=== PATIENT | female | born 1970 | race American Indian/Alaskan Native ===

== ENCOUNTER 2017-03-01 02:17 | Emergency (ER) | payer MEDICARE, OTHER ==
[2017-03-01] MEDS ORDERED: DILAUDID IV ONE (02:57)
[2017-03-01] MEDS ORDERED: SUBLIMAZE IV ONE ×2 (06:49→07:00)
--- NOTE | 2017-03-01 06:51 | Emergency Department Report ---
ED Lower Extremity HPI - General Chief Complaint: Extremity Injury, Lower Stated Complaint: R ANKLE PAIN Time Seen by Provider: 03/01/17 06:40 Source: patient, EMS (ems notes not available at time of chart dictation), RN notes reviewed, old records reviewed Mode of arrival: Stretcher Limitations: Physical Limitation - History of Present Illness Initial Comments: This is a 46-year-old female. She is previously unknown to me. She presents to the ER with right ankle pain after her legs gave way. She did not fall and hit her head. She did not hit her neck. She has no extremity weakness or numbness. The pain is sharp. It increases with palpation and range of motion. It decreases with rest. MD Complaint: ankle injury -: Sudden, days(s) Injury: Ankle: Right Type of Injury: inversion, eversion Place: home Severity: moderate Improves With: rest Worsens With: movement, palpation Context: walking Associated Symptoms: swelling - Related Data Home Medications Medication Instructions Recorded Confirmed Last Taken Duloxetine HCl [DULoxetine] 60 mg PO DAILY 12/14/14 10/02/15 10/02/15 Loratadine [Claritin] 10 mg PO DAILY 12/14/14 10/02/15 10/02/15 Tizanidine HCl [Zanaflex] 4 mg PO TID PRN 12/14/14 10/02/15 10/02/15 Butalb/Acetamin/Caff 50-325-40 1 tab PO Q8H PRN 03/22/15 10/02/15 10/01/15 [Fioricet] Spironolactone [Aldactone] 25 mg PO DAILY 03/22/15 10/02/15 10/02/15 Ondansetron [Zofran TAB] 4 mg PO Q6HR PRN 04/15/15 10/02/15 2 Weeks Ago Multivits,Ca,Minerals/Iron/FA 1 each PO QDAY 05/05/15 10/02/15 10/02/15 [Thera M Plus Tablet] Quetiapine Fumarate [QUEtiapine 425 mg PO QHS 05/05/15 10/02/15 10/01/15 Fumarate] Multivit with Calcium,Iron,Min 1 each PO DAILY 10/02/15 10/02/15 10/01/15 [Multiple Vitamins For Women] Topiramate [Topamax] 300 mg PO DAILY 10/02/15 10/02/15 10/02/15 Previous Rx's Medication Instructions Recorded Last Taken Type Morphine Sulfate [Morphine Sulfate 30 mg PO Q12H #20 tablet.er 12/23/14 Rx ER] Metoprolol [Lopressor TAB] 50 mg PO BID #60 tablet 03/25/15 10/02/15 Rx levETIRAcetam [Keppra TAB] 500 mg PO BID #60 tablet 04/25/15 10/02/15 Rx Erythromycin [Erythromycin Ophth 1 applicatio OU Q6HR #1 tube 08/06/16 Unknown Rx Oint] Naproxen [Naprosyn] 500 mg PO BID #60 tablet 01/14/17 Unknown Rx methOCARBAMOL [Robaxin TAB] 500 mg PO BID #60 tab 01/14/17 Unknown Rx Ketorolac [Toradol] 10 mg PO Q6H PRN #20 tablet 03/01/17 Unknown Rx oxyCODONE [Roxicodone] 5 mg PO Q6HR PRN #15 tablet 03/01/17 Unknown Rx Allergies Allergy/AdvReac Type Severity Reaction Status Date / Time No Known Allergies Allergy Verified 12/14/14 06:02 ED Review of Systems ROS: Stated complaint: R ANKLE PAIN Other details as noted in HPI Constitutional: denies: fever Eyes: denies: vision change ENT: denies: epistaxis Respiratory: denies: cough Cardiovascular: denies: chest pain Gastrointestinal: denies: abdominal pain Genitourinary: denies: dysuria Musculoskeletal: arthralgia, myalgia Skin: denies: lesions Neurological: denies: weakness Psychiatric: anxiety ED Past Medical Hx - Past Medical History Hx Hypertension: Yes Hx Heart Attack/AMI: (see anes. note.) Hx Congestive Heart Failure: No Hx Diabetes: No Hx Arthritis: Yes Hx Seizures: Yes Hx Psychiatric Treatment: Yes (bipolar disorder) Hx Asthma: No Hx COPD: No Additional medical history: Chronic pain - Surgical History Hx Cholecystectomy: Yes Additional Surgical History: Tubal ligation, gastric bypass, left shoulder surgery - Social History Smoking Status: Never Smoker Substance Use Type: None - Medications Home Medications: Home Medications Medication Instructions Recorded Confirmed Last Taken Type Duloxetine HCl [DULoxetine] 60 mg PO DAILY 12/14/14 10/02/15 10/02/15 History Loratadine [Claritin] 10 mg PO DAILY 12/14/14 10/02/15 10/02/15 History Tizanidine HCl [Zanaflex] 4 mg PO TID PRN 12/14/14 10/02/15 10/02/15 History Morphine Sulfate [Morphine Sulfate 30 mg PO Q12H #20 tablet.er 12/23/1410/01/15 Rx ER] Butalb/Acetamin/Caff 50-325-40 1 tab PO Q8H PRN 03/22/15 10/02/15 10/01/15 History [Fioricet] Spironolactone [Aldactone] 25 mg PO DAILY 03/22/15 10/02/15 10/02/15 History Metoprolol [Lopressor TAB] 50 mg PO BID #60 tablet 03/25/15 10/02/15 10/02/15 Rx Ondansetron [Zofran TAB] 4 mg PO Q6HR PRN 04/15/15 10/02/15 2 Weeks Ago History levETIRAcetam [Keppra TAB] 500 mg PO BID #60 tablet 04/25/15 10/02/15 10/02/15 Rx Multivits,Ca,Minerals/Iron/FA 1 each PO QDAY 05/05/15 10/02/15 10/02/15 History [Thera M Plus Tablet] Quetiapine Fumarate [QUEtiapine 425 mg PO QHS 05/05/15 10/02/15 10/01/15 History Fumarate] Multivit with Calcium,Iron,Min 1 each PO DAILY 10/02/15 10/02/15 10/01/15 History [Multiple Vitamins For Women] Topiramate [Topamax] 300 mg PO DAILY 10/02/15 10/02/15 10/02/15 History Erythromycin [Erythromycin Ophth 1 applicatio OU Q6HR #1 tube 08/06/16 Unknown Rx Oint] Naproxen [Naprosyn] 500 mg PO BID #60 tablet 01/14/17 Unknown Rx methOCARBAMOL [Robaxin TAB] 500 mg PO BID #60 tab 01/14/17 Unknown Rx Ketorolac [Toradol] 10 mg PO Q6H PRN #20 tablet 03/01/17 Unknown Rx oxyCODONE [Roxicodone] 5 mg PO Q6HR PRN #15 tablet 03/01/17 Unknown Rx ED Physical Exam - General Limitations: Physical Limitation General appearance: alert, in no apparent distress - Head Head exam: Present: atraumatic, normocephalic - Eye Eye exam: Present: normal appearance, EOMI. Absent: nystagmus - ENT ENT exam: Present: normal exam, normal orophraynx, mucous membranes moist, normal external ear exam - Neck Neck exam: Present: normal inspection, full ROM. Absent: tenderness, meningismus - Respiratory Respiratory exam: Present: normal lung sounds bilaterally. Absent: respiratory distress, wheezes, rales, rhonchi, stridor, decreased breath sounds - Cardiovascular Cardiovascular Exam: Present: regular rate, normal rhythm, normal heart sounds. Absent: bradycardia, tachycardia, irregular rhythm, systolic murmur, diastolic murmur, rubs, gallop - GI/Abdominal GI/Abdominal exam: Present: soft, normal bowel sounds. Absent: distended, tenderness, guarding, rebound, rigid, pulsatile mass - Extremities Exam Extremities exam: Present: full ROM, tenderness, normal capillary refill, other (2+ pulses are noted in 4 extremities. The right ankle is tender in the medial and lateral malleolus. Compartments are soft. Sensations intact to light touch. There is no significant pain with passive range of motion of the great toe.). Absent: pedal edema, joint swelling, calf tenderness - Back Exam Back exam: Present: normal inspection, full ROM. Absent: tenderness, CVA tenderness (R), CVA tenderness (L), muscle spasm, paraspinal tenderness, vertebral tenderness - Neurological Exam Neurological exam: Present: alert, oriented X3, other (Extraocular movements intact. Tongue midline. No facial droop. Facial sensation intact to light touch in the V1, V2, V3 distribution bilaterally. 5 and 5 strength in 4 extremities.. Sensation is intact to light touch in 4 extremities.). Absent: motor sensory deficit - Psychiatric Psychiatric exam: Present: normal affect, normal mood - Skin Skin exam: Present: warm, dry, intact, normal color. Absent: rash ED Course Vital Signs 03/01/17 03/01/17 03/01/17 02:31 03:04 07:06 Temperature 98.3 F Pulse Rate 62 71 Respiratory 16 18 18 Rate Blood Pressure 118/76 Blood Pressure 132/82 [Right] O2 Sat by Pulse 96 100 Oximetry - Reevaluation(s) Reevaluation #1: 03/01/17 08:15 Differential diagnosis: Right lower extremity ankle fracture, [place] fracture Assessment and plan: This is a 46-year-old female who has a complex fracture of the distal fibula with slight posterior angulation. Medial malleolus fracture is noted. No new fractures noted. She has a GCS of 15, with an NIH score of 0. Her compartments are soft. There is no indication of compartment syndrome or neurovascular compromise at this time. Patient will be made nonweightbearing , she is given crutches, she will be placed in a posterior/X Josemanuel, and is instructed to follow-up with outpatient orthopedics within the next 5-7 days. Return precautions are extensively reviewed. ED Lower Extremity MDM - Lab Data Vital Signs 03/01/17 03/01/17 03/01/17 02:31 03:04 07:06 Temperature 98.3 F Pulse Rate 62 71 Respiratory 16 18 18 Rate Blood Pressure 118/76 Blood Pressure 132/82 [Right] O2 Sat by Pulse 96 100 Oximetry - Radiology Data Radiology results: report reviewed, image reviewed X-ray of the ankle demonstrates a medial malleolus fracture on the right, and a complex fracture of the distal fibula with slight posterior angulation. The talus and calcaneus are intact. The ankle mortise is intact. There is soft tissue swelling. The right knee x-ray is negative for acute disease. Critical care attestation.: If time is entered above; I have spent that time in minutes in the direct care of this critically ill patient, excluding procedure time. ED Disposition Clinical Impression: Ankle fracture Disposition: DISCHARGED TO HOME OR SELFCARE Is pt being admited?: No Does the pt Need Aspirin: No Condition: Stable Instructions: Ankle Fracture (ED) Additional Instructions: X-ray of the ankle demonstrated a right-sided medial malleolus fracture, and a complex fracture of the distal fibula. Remain nonweightbearing. Use the crutches as directed. Follow-up with an orthopedic surgeon within the next 5-7 days. If taking oxycodone for pain, do not drive, consume alcohol, operate motor vehicles, make important decisions. Return to the ER right away with new pain, worsening pain, migration of pain, fevers or chills, intractable nausea or vomiting, inability to tolerate liquid feeds, extremity numbness. If taking the oxycodone for pain, do not combine with other sedating medications. Prescriptions: Ketorolac [Toradol] 10 mg PO Q6H PRN #20 tablet PRN Reason: Pain oxyCODONE [Roxicodone] 5 mg PO Q6HR PRN #15 tablet PRN Reason: Pain Referrals: PRIMARY CARE, [Primary Care Provider] - 3-5 Days BRIAN GHOSH MD [Staff Physician] - 3-5 Days MURRAY GORDON MD [Staff Physician] - 3-5 Days
--- NOTE | 2017-03-01 06:57 | XRay Report ---
FINAL REPORT PROCEDURE: XR ANKLE 3 RT TECHNIQUE: Right ankle radiographs, AP, lateral, and oblique views. CPT 48292 HISTORY: injury, pain OF RT ANKLE COMPARISON: No prior studies are available for comparison. FINDINGS: There is a complex fracture of the distal fibula with slight posterior angulation. There is a fracture of the medial malleolus. Talus and calcaneus are intact. Ankle mortise is intact. There is generalized soft tissue swelling. IMPRESSION: Fractures of the distal tibia and fibula as described..
[2017-03-01 07:07] VITALS: BP 132/82
--- NOTE | 2017-03-01 07:52 | XRay Report ---
RIGHT KNEE: Pain after fall. AP and lateral projections. The bony architecture is intact without evidence of fracture or dislocation. No significant soft tissue abnormality is seen. IMPRESSION: Normal right knee.
== END 2017-03-01 08:58 | disposition home or self-care (01) ==
LOC: ED 02:17
DX: S82.831A Other fracture of upper and lower end of right fibula, initial encounter for closed fracture (principal); M19.90 Unspecified osteoarthritis, unspecified site; I10 Essential (primary) hypertension; F31.9 Bipolar disorder, unspecified; G89.29 Other chronic pain; X58.XXXA Exposure to other specified factors, initial encounter; Y93.89 Activity, other specified; Y99.9 Unspecified external cause status; Y92.89 Other specified places as the place of occurrence of the external cause
CPT/HCPCS: 29515; 73560; 73610; 96374; 96375; 99284; J1170; J3010

== ENCOUNTER 2017-03-08 08:48 | Day surgery (SDC) | payer MEDICARE ==
--- NOTE | 2017-03-07 21:30 | History and Physical Report ---
History of Present Illness Date of examination: 03/03/17 Date of admission: 03/08/17 Chief complaint: History of fall, right ankle injury and was seen in emergency room. Diagnosed with displaced by mild the fracture, being admitted for open reduction internal fixation. Past History Past Medical History: hypertension Medications and Allergies Allergies Allergy/AdvReac Type Severity Reaction Status Date / Time No Known Allergies Allergy Verified 12/14/14 06:02 Home Medications Medication Instructions Recorded Confirmed Last Taken Type Duloxetine HCl [DULoxetine] 60 mg PO DAILY 12/14/14 03/07/17 10/02/15 History Tizanidine HCl [Zanaflex] 4 mg PO TID PRN 12/14/14 03/07/17 10/02/15 History Spironolactone [Aldactone] 25 mg PO DAILY 03/22/15 03/07/17 10/02/15 History Metoprolol [Lopressor TAB] 50 mg PO BID #60 tablet 03/25/15 03/07/17 10/02/15 Rx Ondansetron [Zofran TAB] 4 mg PO Q6HR PRN 04/15/15 03/07/17 2 Weeks Ago History Multivits,Ca,Minerals/Iron/FA 1 each PO QDAY 05/05/15 03/07/17 10/02/15 History [Thera M Plus Tablet] Quetiapine Fumarate [QUEtiapine 425 mg PO QHS 05/05/15 03/07/17 10/01/15 History Fumarate] Multivit with Calcium,Iron,Min 1 each PO DAILY 10/02/15 03/07/17 10/01/15 History [Multiple Vitamins For Women] Topiramate [Topamax] 300 mg PO DAILY 10/02/15 03/07/17 10/02/15 History Erythromycin [Erythromycin Ophth 1 applicatio OU Q6HR #1 tube 08/06/16 03/07/17 Unknown Rx Oint] methOCARBAMOL [Robaxin TAB] 500 mg PO BID #60 tab 01/14/17 03/07/17 02/14/17 Rx oxyCODONE [Roxicodone] 5 mg PO Q6HR PRN #15 tablet 03/01/17 03/07/17 03/05/17 Rx Omeprazole Magnesium [PriLOSEC Otc] 20 mg PO QDAY 03/07/17 03/07/17 Unknown History Oxycodone HCl/Acetaminophen 1 each PO Q6HR PRN 03/07/17 03/07/17 Unknown History [Percocet 10/325 mg] Sucralfate [Carafate] 1 gm PO ACHS 03/07/17 03/07/17 Unknown History Review of Systems All systems: negative Exam - Extremities Extremities: abnormal (Right right ankle with painful limitation of movement, swelling. Tenderness across the medial and lateral malleolus, no tenderness along the Achilles tendon, base of fifth metatarsal.) Assessment and Plan - Patient Problems (1) Ankle fracture Status: Acute Qualifiers: Encounter type: initial encounter Fracture type: closed Open fracture type: O Laterality: right Fracture healing: F Qualified Code(s): S82.891A - Other fracture of right lower leg, initial encounter for closed fracture Plan to address problem: Open reduction and internal fixation
[2017-03-08] MEDS ORDERED: ANCEF/STERILE WATER 2 GM/20 ML IV NR (09:36)
--- NOTE | 2017-03-08 10:13 | Anesthesia Consultation ---
Anesthesia Consult and Med Hx Date of service: 03/08/17 - Airway Anesthetic Teeth Evaluation: Good ROM Head & Neck: Adequate Mental/Hyoid Distance: Adequate Mallampati Class: Class II Intubation Access Assessment: Probably Good - Pulmonary Exam CTA: Yes - Cardiac Exam Cardiac Exam: RRR - Pre-Operative Health Status ASA Pre-Surgery Classification: ASA2 Proposed Anesthetic Plan: General Nerve Block: Pop - Pulmonary Hx Smoking: No Hx Asthma: No SOB: No COPD: No Hx Pneumonia: No Hx Sleep Apnea: No - Cardiovascular System Hx Hypertension: Yes Hx Heart Attack/AMI: No (DENIES) - Central Nervous System Hx Seizures: Yes (2014, LAST AND ONLY EPISODE, THEY TOOK ME OFF MEDICINE) Hx Psychiatric Problems: Yes - Gastrointestinal Hx Ulcer: Yes - Endocrine Hx End Stage Renal Disease: No - Hematic Hx Anemia: Yes - Other Systems Hx Alcohol Use: No Hx Substance Use: No (DENIES) Hx Cancer: No Hx Obesity: Yes
--- NOTE | 2017-03-08 10:13 | Anesthesia Day of Surgery ---
Anesthesia Day of Surgery - Day of Surgery Patient Examined: Yes Patient H&P Reviewed: Yes Patient is NPO: Yes Beta Blockers: Yes
[2017-03-08] MEDS ORDERED: SUBLIMAZE IV ONE (10:30)
[2017-03-08] MEDS ORDERED: MARCAINE-EPI 0.25%-1:200,000 INFILTRATI ONE (10:35)
[2017-03-08] MEDS ORDERED: DECADRON ONE ×2 (10:35→12:33)
[2017-03-08] MEDS ORDERED: VERSED IV NR (11:00)
[2017-03-08] MEDS ORDERED: PEPCID PO NR (11:00)
[2017-03-08] MEDS ORDERED: NACL 0.9% 1000 ML 1,000 ML IV SCH (11:00)
[2017-03-08] MEDS ORDERED: NEOSPORIN GU IR ONE ×2 (12:25→13:16)
[2017-03-08] MEDS ORDERED: XYLOCAINE MPF 2% ONE (12:33)
[2017-03-08] MEDS ORDERED: ZOFRAN ONE (12:33)
[2017-03-08] MEDS ORDERED: DIPRIVAN 10 MG/ML IV ONE (12:33)
[2017-03-08] MEDS ORDERED: SUBLIMAZE ONE (12:54)
[2017-03-08] MEDS ORDERED: NACL 0.9% IR ONE (13:16)
--- NOTE | 2017-03-08 13:43 | Discharge Summary ---
Providers - Providers Date of discharge: 03/08/17 Attending physician: BRIAN GHOSH Primary care physician: [employer] UNDERWRITER Hospitalization Reason for admission: Bi malleolar Fx right ankle Condition: Stable Procedures: ORIF bi mall Fx ankle /right (synthes) Disposition: DISCHARGED TO HOME OR SELFCARE - Discharge Diagnoses (1) Ankle fracture Status: Acute Qualifiers: Encounter type: initial encounter Fracture type: closed Open fracture type: O Laterality: right Fracture healing: F Qualified Code(s): S82.891A - Other fracture of right lower leg, initial encounter for closed fracture Core Measure Documentation - Palliative Care Palliative Care/ Comfort Measures: Not Applicable - Core Measures Any of the following diagnoses?: none Exam - Constitutional Vitals: Temp Pulse Resp BP Pulse Ox 99.5 F 80 15 134/80 100 03/08/17 09:41 03/08/17 12:31 03/08/17 12:31 03/08/17 12:31 03/08/17 12:31 Plan Activity: advance as tolerated, no driving until cleared by PCP, fall precautions Weight Bearing Status: Non-Weight Bearing Diet: regular Wound: per your surgeon's advice Durable Medical Equipment Needed Upon Discharge: Crutches Follow up with: RADHA HARKINS MD [Primary Care Provider] - 7 Days BRIAN GHOSH MD [Staff Physician] - 7 Days
[2017-03-08] MEDS ORDERED: DILAUDID ONE (14:41)
[2017-03-08] MEDS ORDERED: NORCO 5/325 PO PRN (14:46)
[2017-03-08] MEDS ORDERED: ZOFRAN IV PRN (14:46)
[2017-03-08] MEDS: DILAUDID IV PRN ×2 (14:47→15:00)
--- NOTE | 2017-03-08 15:10 | Operative Report ---
PREOPERATIVE DIAGNOSIS: Unstable bimalleolar fracture, right ankle. POSTOPERATIVE DIAGNOSIS: Unstable bimalleolar fracture, right ankle. OPERATIVE PROCEDURE: Open reduction and internal fixation, bimalleolar fracture with Synthes plate -- screw system. SURGEON: Raya Tinajero MD CANT GANG SAWYER: Gabi Love CSA. ANESTHESIA: General. BLOOD LOSS: Minimal. DESCRIPTION OF PROCEDURE: The patient was taken to surgery suite, satisfactory analgesia obtained with general anesthetics. The right lower limb prepped with ChloraPrep, satisfactorily draped. The correct patient, procedure, and surgical sites were confirmed. Tourniquet was inflated to 300 mmHg pressure. Anterior medial incision was made over the medial malleolus, deepened to the thickness of skin and subcutaneous, deep fascia incised. Periosteum elevated and the fracture was reduced under direct vision. Using the 2.4 mm drillbit a drill hole was made from the tip of the lateral malleolus into the metaphysis aspect of the distal tibia. A 4.0 cancellous screw length, 40 mm length with a washer was applied. A second screw was applied in a similar fashion as to provide rotatory stability. Under fluoroscopy, screw positioning was evaluated and no penetration into the ankle mortise was identified. A second incision was then made over the posterolateral aspect of the ankle, centering over the fracture site deepened through subcutaneous. Periosteum incised and the fracture site was visualized. For length of approximately 1-1.5 cm, there was significant comminution of the fracture starting at a point at the level of the syndesmosis and extending proximal. A 7-hole 1/3 tubular plate was then applied to the posterolateral aspect of the fibula, position was confirmed under fluoroscopy and proximally drill hole was made and with the 2.4 mm drillbit and 4.0 cancellous screw was applied. Proximal plate destabilized under fluoroscopy control through the distal fragment, 2 cancellous screws were applied in a similar fashion, care again taken to avoid penetration into the ankle mortise. Through the comminuted segment satisfactory screw fixation could not be obtained and the screw holes were then left empty. Two additional screws were then applied in a similar fashion into the proximal fragment, thereby stabilizing the plate. Final AP and lateral fluoroscopy showing satisfactory reduction and stabilization of the bimalleolar fracture and ankle mortise and latter-day of length of fibula. The syndesmosis appeared intact. Wound was then closed in layers in the standard fashion using 2-0 Vicryl and saurabh. Sterile dressings were applied. The ankle was immobilized in a posterior splint in neutral position. The patient was transferred to recovery room. She is to be discharged when discharge criteria are met. HOMEGOING INSTRUCTIONS: Elevation, localized packs, no weightbearing ambulation, aspirin for DVT prophylaxis and pain management. Follow up at the office in 7-10 days. JOB# [id number] RVN/NTS
[2017-03-08] MEDS ORDERED: PERCOCET 5/325 PO PRN (15:22)
--- NOTE | 2017-03-08 16:03 | XRay Report ---
Right ankle 3 views. History: Fracture. Findings: Orthopedic screws are seen traversing the fracture of the medial malleolus. An orthopedic sideplate and multiple screws are seen transfixing the distal fibular fracture. There are no radiographically signs of complications.
[2017-03-08 18:15] VITALS: BP 135/78
== END 2017-03-08 17:10 | disposition home or self-care (01) ==
LOC: OR 08:48
PROVIDERS: ATTEND Orthopaedic Surgery
DX: S82.841A Displaced bimalleolar fracture of right lower leg, initial encounter for closed fracture (principal); F32.9 Major depressive disorder, single episode, unspecified; E78.00 Pure hypercholesterolemia, unspecified; G40.909 Epilepsy, unspecified, not intractable, without status epilepticus; I10 Essential (primary) hypertension; D64.9 Anemia, unspecified; E66.9 Obesity, unspecified; Z68.32 Body mass index [BMI] 32.0-32.9, adult; Z98.84 Bariatric surgery status; Z81.8 Family history of other mental and behavioral disorders; Z82.49 Family history of ischemic heart disease and other diseases of the circulatory system; Z83.3 Family history of diabetes mellitus; X58.XXXA Exposure to other specified factors, initial encounter
CPT/HCPCS: 27814; 64450; 73610; C1713; J0690; J1100; J1170; J2250; J2405; J2704; J3010; J7030

== ENCOUNTER 2017-03-27 09:22 | Outpatient (CLI) | payer MEDICARE ==
--- NOTE | 2017-03-27 11:03 | Mammography Report ---
BONE DENSITY STUDY: DEFINITIONS: BMD = Bone Mineral Density T-score = BMD related to mean peak bone mass of young adult (mean expressed in Standard Deviation) Z-score = Age matched BMD expressed in SD World Health Organization (WHO) Diagnostic Criteria Normal T-score > -1 SD Osteopenia T-score between -1 and -2.4 SD Osteoporosis T-score -2.5 SD or below FINDINGS: The weighted average BMD of lumbar spine L1-L4 is 0.801 with a T-score of -2.2. The weighted average BMD of hip is 0.736 with a T-score of -1.7. IMPRESSION: The patient's T-score is diagnostic for osteopenia and average relative risk for fracture. NOTE: BMD is not the only risk factor for fracture; also consider factors such as the patient's age, risk of falling, previous osteoporotic fracture, family history of osteoporotic fractures, current smoker, and low body weight. Velasco's triangle is a region of interest in femur, predominantly of trabecular bone. It is not a true anatomic site, and ISCD does not recommend its use clinically.
== END 2017-03-27 09:23 | disposition home or self-care (01) ==
LOC: MAMMO 09:22
PROVIDERS: ATTEND Internal Medicine Gastroenterology
DX: M85.88 Other specified disorders of bone density and structure, other site (principal)
CPT/HCPCS: 77080

== ENCOUNTER 2017-04-14 16:04 | Outpatient (CLI) | payer MEDICARE | END 2017-04-14 16:05 | disposition home or self-care (01) | LOC: LAB 16:04 | PROVIDERS: ATTEND Orthopaedic Surgery | DX: S82.841A Displaced bimalleolar fracture of right lower leg, initial encounter for closed fracture (principal); X58.XXXA Exposure to other specified factors, initial encounter; Y93.89 Activity, other specified; Y92.89 Other specified places as the place of occurrence of the external cause; Y99.8 Other external cause status | CPT/HCPCS: 87076; 87116; 87186 ==

== ENCOUNTER 2017-10-19 22:48 | Emergency (ER) | payer MEDICARE ==
[2017-10-19 23:57] LABS: Basophils % (Auto) 0.5 % (0.0-1.8); Eosinophils % (Auto) 0.4 % (0.0-4.3); Hematocrit 51.1 % (30.3-42.9); Hemoglobin 16.4 gm/dl (10.1-14.3); Mean Corpuscular HGB Conc 32 % (30-34); Mean Corpuscular Hemoglobin 30 pg (28-32); Mean Corpuscular Volume 94 fl (79-97); Platelet Count 497 K/mm3 (140-440); Red Blood Count 5.45 M/mm3 (3.65-5.03); Red Cell Distribution Width 16.4 % (13.2-15.2); White Blood Count 8.5 K/mm3 (4.5-11.0)
[2017-10-20 00:17] LABS: Albumin/Globulin Ratio 1.1 %; Alkaline Phosphatase 168 units/L (35-129); Anion Gap 22 mmol/L; BUN/Creatinine Ratio 10; Blood Urea Nitrogen 6 mg/dL (7-17); Calcium 9.8 mg/dL (8.4-10.2); Carbon Dioxide 20 mmol/L (22-30); Chloride 104.3 mmol/L (98-107); Glucose 89 mg/dL (65-100); Lipase 36 units/L (13-60); Potassium 4.6 mmol/L (3.6-5.0); Sodium 142 mmol/L (137-145); Total Protein 7.7 g/dL (6.3-8.2)
[2017-10-20 00:18] LABS: Alanine Aminotransferase < 5 units/L (7-56)
[2017-10-20 00:44] LABS: Bilirubin,Urine NEG (Negative); Blood,Urine NEG (Negative); Ketones,Urine NEG (Negative); Leukocyte Esterase,Urine NEG (Negative); Mucus,Urine FEW /HPF; Nitrite,Urine NEG (Negative); Protein,Urine <15 mg/dL mg/dL (Negative); RBC,Urine < 1.0 /HPF (0.0-6.0); Urobilinogen,Urine < 2.0 mg/dL (<2.0); WBC,Urine < 1.0 /HPF (0.0-6.0)
[2017-10-20] MEDS ORDERED: TORADOL IM ONE (01:18)
--- NOTE | 2017-10-20 01:22 | Emergency Department Report ---
ED Abdominal Pain HPI - General Chief Complaint: Abdominal Pain Stated Complaint: ABD PAIN - ON AND OFF FEW WEEKS Time Seen by Provider: 10/20/17 01:08 Source: patient Mode of arrival: Ambulatory Limitations: No Limitations - History of Present Illness Initial Comments: Patient is a 47-year-old female status post hysterectomy 2 weeks ago presents to the ER with complaints of abdominal pain. She states she has having abdominal pain in her bilateral lower quadrants and periumbilical. Pain is moderate. Patient states she hasn't felt right since her hysterectomy. Patient denies fever and chills. Patient denies chest pain. Patient states she has been constipated. MD Complaint: abdominal pain -: Gradual, week(s) (2 weeks) Location: periumbilical, LLQ, RLQ Radiation: none Migration to: no migration Severity: moderate Severity scale (0 -10): 5 Quality: cramping, aching, fullness Consistency: constant Improves With: bowel movement, rest Worsens With: eating, movement Context: recent surgery/procedure Associated Symptoms: nausea, constipation (status post tubal ligation years ago. hysterectomy 2 weeks ago) - Related Data Home Medications Medication Instructions Recorded Confirmed Last Taken Duloxetine HCl [DULoxetine] 60 mg PO DAILY 12/14/14 03/08/17 03/07/17 Tizanidine HCl [Zanaflex] 4 mg PO TID PRN 12/14/14 03/08/17 03/07/17 Spironolactone [Aldactone] 25 mg PO DAILY 03/22/15 03/08/17 03/08/17 Ondansetron [Zofran TAB] 4 mg PO Q6HR PRN 04/15/15 03/08/17 03/07/17 Multivit,Calc,Mins/Iron/Folic 1 each PO QDAY 05/05/15 03/08/17 03/07/17 [Thera M Plus Tablet] Quetiapine Fumarate [QUEtiapine 425 mg PO QHS 05/05/15 03/07/17 10/01/15 Fumarate] Multivit with Calcium,Iron,Min 1 each PO DAILY 10/02/15 03/08/17 03/07/17 [Multiple Vitamins For Women] Topiramate [Topamax] 300 mg PO DAILY 10/02/15 03/08/17 03/07/17 Omeprazole Magnesium [PriLOSEC Otc] 20 mg PO QDAY 03/07/17 03/08/17 03/07/17 Oxycodone HCl/Acetaminophen 1 each PO Q6HR PRN 03/07/17 03/08/17 03/07/17 [Percocet 10/325 mg] Sucralfate [Carafate] 1 gm PO ACHS 03/07/17 03/08/17 03/07/17 Previous Rx's Medication Instructions Recorded Last Taken Type Metoprolol [Lopressor TAB] 50 mg PO BID #60 tablet 03/25/15 03/08/17 Rx Erythromycin [Erythromycin Ophth 1 applicatio OU Q6HR #1 tube 08/06/16 Unknown Rx Oint] methOCARBAMOL [Robaxin TAB] 500 mg PO BID #60 tab 01/14/17 02/14/17 Rx oxyCODONE [Roxicodone] 5 mg PO Q6HR PRN #15 tablet 03/01/17 03/05/17 Rx Docusate Sodium [Colace ORAL LIQ] 100 mg PO TID PRN #20 oralsyr 10/20/17 Unknown Rx Allergies Allergy/AdvReac Type Severity Reaction Status Date / Time No Known Allergies Allergy Verified 12/14/14 06:02 ED Review of Systems ROS: Stated complaint: ABD PAIN - ON AND OFF FEW WEEKS Other details as noted in HPI ED Past Medical Hx - Past Medical History Previous Medical History?: Yes Hx Hypertension: Yes Hx Heart Attack/AMI: No (DENIES) Hx Congestive Heart Failure: No Hx Diabetes: No Hx GERD: Yes Hx Arthritis: Yes Hx Seizures: Yes (2014, LAST AND ONLY EPISODE, THEY TOOK ME OFF MEDICINE) Hx Psychiatric Treatment: Yes (bipolar disorder) Hx Asthma: No Hx COPD: No Hx HIV: No Additional medical history: Chronic pain - Surgical History Past Surgical History?: Yes Hx Cholecystectomy: Yes Additional Surgical History: Tubal ligation, gastric bypass, left shoulder surgery - Social History Smoking Status: Never Smoker - Medications Home Medications: Home Medications Medication Instructions Recorded Confirmed Last Taken Type Duloxetine HCl [DULoxetine] 60 mg PO DAILY 12/14/14 03/08/17 03/07/17 History Tizanidine HCl [Zanaflex] 4 mg PO TID PRN 12/14/14 03/08/17 03/07/17 History Spironolactone [Aldactone] 25 mg PO DAILY 03/22/15 03/08/17 03/08/17 History Metoprolol [Lopressor TAB] 50 mg PO BID #60 tablet 03/25/15 03/08/17 03/08/17 Rx Ondansetron [Zofran TAB] 4 mg PO Q6HR PRN 04/15/15 03/08/17 03/07/17 History Multivit,Calc,Mins/Iron/Folic 1 each PO QDAY 05/05/15 03/08/17 03/07/17 History [Thera M Plus Tablet] Quetiapine Fumarate [QUEtiapine 425 mg PO QHS 05/05/15 03/07/17 10/01/15 History Fumarate] Multivit with Calcium,Iron,Min 1 each PO DAILY 10/02/15 03/08/17 03/07/17 History [Multiple Vitamins For Women] Topiramate [Topamax] 300 mg PO DAILY 10/02/15 03/08/17 03/07/17 History Erythromycin [Erythromycin Ophth 1 applicatio OU Q6HR #1 tube 08/06/16 03/07/17 Unknown Rx Oint] methOCARBAMOL [Robaxin TAB] 500 mg PO BID #60 tab 01/14/17 03/07/17 02/14/17 Rx oxyCODONE [Roxicodone] 5 mg PO Q6HR PRN #15 tablet 03/01/17 03/07/17 03/05/17 Rx Omeprazole Magnesium [PriLOSEC Otc] 20 mg PO QDAY 03/07/17 03/08/17 03/07/17 History Oxycodone HCl/Acetaminophen 1 each PO Q6HR PRN 03/07/17 03/08/17 03/07/17 History [Percocet 10/325 mg] Sucralfate [Carafate] 1 gm PO ACHS 03/07/17 03/08/17 03/07/17 History Docusate Sodium [Colace ORAL LIQ] 100 mg PO TID PRN #20 oralsyr 10/20/17 Unknown Rx ED Physical Exam - General Limitations: No Limitations ED Course Vital Signs 10/19/17 10/19/17 10/20/17 22:53 23:19 00:46 Temperature 97.4 F L 97.4 F L 97.6 F Pulse Rate 86 86 70 Respiratory 18 18 16 Rate Blood Pressure 140/101 140/101 Blood Pressure 146/98 [Left] O2 Sat by Pulse 99 100 99 Oximetry ED Medical Decision Making - Lab Data Result diagrams: 10/19/17 23:38 10/19/17 23:38 - Medical Decision Making CT is negative for acute findings. No abscess near surgical site. No infections are also surgical site. - Differential Diagnosis abd pain. Critical care attestation.: If time is entered above; I have spent that time in minutes in the direct care of this critically ill patient, excluding procedure time. ED Disposition Clinical Impression: Abdominal pain, Constipation Disposition: DC- TO HOME OR SELFCARE Is pt being admited?: No Does the pt Need Aspirin: No Condition: Stable Instructions: Abdominal Pain (ED) Additional Instructions: Patient to increase water. Patient to take fiber supplement and stool softener OTC. Patient to take Tylenol and Advil when necessary. See primary care within 3-5 days. See [facility] surgeon within 3-5 days. He is to return to ER if condition worsens. Prescriptions: Docusate Sodium [Colace ORAL LIQ] 100 mg PO TID PRN #20 oralsyr PRN Reason: Constipation Referrals: PRIMARY CARE, [Primary Care Provider] - 3-5 Days Time of Disposition: 02:40
--- NOTE | 2017-10-20 01:51 | Cat Scan Report ---
FINAL REPORT EXAM: CT ABDOMEN PELVIS WO CON HISTORY: pain TECHNIQUE: Routine axial imaging was obtained of the abdomen and pelvis with sagittal and coronal reconstructions. Comparison is made study 04/15/2015. FINDINGS: The lung bases are clear. Pleural fluid is not seen. There are postsurgical changes in the upper abdomen from previous gastric bypass surgery changes. The gallbladder has been removed. The biliary tree is not dilated. The liver, pancreas, spleen, and adrenal glands appear normal. The kidneys show no evidence of stones or hydronephrosis. There is a 15 millimeter cortical cyst in the posterior aspect of the left kidney. The bowel loops are normal in caliber and course. There is a right-sided colostomy site noted. There is no evidence of ileus or obstruction. In the pelvis the appendix appears normal. The uterus has been removed. There is mild inflammatory changes along the floor pelvis which may be postsurgical in origin. There is no evidence of abscess formation. The bladder appears normal. The bones and soft tissues do not show any acute changes. IMPRESSION: Status post hysterectomy. Mild inflammatory changes along the floor pelvis which is most likely postsurgical in origin. No evidence of abscess formation. Right-sided colostomy site noted. No evidence of bowel obstruction or ileus. Cholecystectomy. Previous gastric bypass surgery changes. Benign cortical cyst in the left kidney.
[2017-10-20 03:03] VITALS: BP 144/100
== END 2017-10-20 03:05 | disposition home or self-care (01) ==
LOC: ED 22:48
DX: R10.32 Left lower quadrant pain (principal); R10.31 Right lower quadrant pain; R10.33 Periumbilical pain; K59.00 Constipation, unspecified; I10 Essential (primary) hypertension; K21.9 Gastro-esophageal reflux disease without esophagitis; M19.90 Unspecified osteoarthritis, unspecified site; R56.9 Unspecified convulsions; G89.29 Other chronic pain; Z90.49 Acquired absence of other specified parts of digestive tract; Z98.890 Other specified postprocedural states
CPT/HCPCS: 36415; 74176; 80053; 81001; 83690; 85025; 96372; 99284; J1885

== ENCOUNTER 2017-10-23 22:44 | Emergency (ER) | payer MEDICARE ==
[2017-10-23 22:51] VITALS: BP 121/87
[2017-10-23 23:27] LABS: Basophils % (Auto) 0.2 % (0.0-1.8); Hematocrit 52.5 % (30.3-42.9); Hemoglobin 16.7 gm/dl (10.1-14.3); Mean Corpuscular HGB Conc 32 % (30-34); Mean Corpuscular Hemoglobin 30 pg (28-32); Mean Corpuscular Volume 93 fl (79-97); Red Blood Count 5.64 M/mm3 (3.65-5.03); Red Cell Distribution Width 15.9 % (13.2-15.2); White Blood Count 9.4 K/mm3 (4.5-11.0)
[2017-10-23 23:41] LABS: Platelet Count 346 K/mm3 (140-440)
[2017-10-23 23:46] LABS: Albumin 3.9 g/dL (3.9-5); Albumin/Globulin Ratio 1.1 %; Alkaline Phosphatase 151 units/L (35-129); Anion Gap 24 mmol/L; BUN/Creatinine Ratio 10; Blood Urea Nitrogen 6 mg/dL (7-17); Calcium 9.1 mg/dL (8.4-10.2); Carbon Dioxide 18 mmol/L (22-30); Chloride 98.1 mmol/L (98-107); Glucose 124 mg/dL (65-100); Lipase 19 units/L (13-60); Potassium 3.7 mmol/L (3.6-5.0); Sodium 136 mmol/L (137-145); Total Protein 7.5 g/dL (6.3-8.2)
[2017-10-24 00:01] LABS: Alanine Aminotransferase < 5 units/L (7-56)
== END 2017-10-23 23:45 | disposition left against medical advice (07) ==
LOC: ED 22:44
DX: R10.9 Unspecified abdominal pain (principal); Z53.21 Procedure and treatment not carried out due to patient leaving prior to being seen by health care provider
CPT/HCPCS: 36415; 80053; 83690; 85025; 93005; 93010

== ENCOUNTER 2017-11-09 02:06 | Inpatient (IN) | payer MEDICARE ==
[2017-11-09] MEDS ORDERED: NARCAN 2 MG/2 ML ONE ×2 (02:59→03:03)
[2017-11-09] MEDS ORDERED: NARCAN 2 MG/2 ML IV ONE ×5 (03:00→04:43)
[2017-11-09 03:24] LABS: Urine Drugs of Abuse Note Disclamer
[2017-11-09 03:28] LABS: Bilirubin,Urine NEG (Negative); Blood,Urine NEG (Negative); Ketones,Urine NEG (Negative); Leukocyte Esterase,Urine NEG (Negative); Mucus,Urine FEW /HPF; Nitrite,Urine NEG (Negative); Protein,Urine <15 mg/dL mg/dL (Negative); Urobilinogen,Urine < 2.0 mg/dL (<2.0)
[2017-11-09 03:31] LABS: Basophils % (Auto) 0.7 % (0.0-1.8); Eosinophils % (Auto) 4.1 % (0.0-4.3); Hematocrit 36.9 % (30.3-42.9); Hemoglobin 12.4 gm/dl (10.1-14.3); Mean Corpuscular HGB Conc 34 % (30-34); Mean Corpuscular Hemoglobin 31 pg (28-32); Mean Corpuscular Volume 92 fl (79-97); Platelet Count 360 K/mm3 (140-440); Red Cell Distribution Width 15.1 % (13.2-15.2); White Blood Count 8.6 K/mm3 (4.5-11.0)
[2017-11-09 03:36] LABS: Anion Gap 15 mmol/L; BUN/Creatinine Ratio 12; Blood Urea Nitrogen 6 mg/dL (7-17); Calcium 8.6 mg/dL (8.4-10.2); Carbon Dioxide 24 mmol/L (22-30); Chloride 99.8 mmol/L (98-107); Glucose 102 mg/dL (65-100); Potassium 3.5 mmol/L (3.6-5.0); Sodium 135 mmol/L (137-145)
--- NOTE | 2017-11-09 04:28 | Cat Scan Report ---
FINAL REPORT EXAM: CT HEAD/BRAIN WO CON HISTORY: AMS TECHNIQUE: Routine axial imaging was obtained of the brain without IV contrast. Comparison is made to the study of 04/15/2015. FINDINGS: There is mild generalized volume loss. There is no evidence of acute stroke or hemorrhage. The ventricular system is appropriate in size and is symmetric. The visualized sinuses are clear. The mastoid air cells are well pneumatized IMPRESSION: Mild volume loss. No evidence of acute stroke or hemorrhage.
--- NOTE | 2017-11-09 04:52 | Emergency Department Report ---
History of Present Illness - General Chief Complaint: Overdose Stated Complaint: OVERDOSE Time Seen by Provider: 11/09/17 02:15 Source: EMS Mode of arrival: Ambulatory Limitations: Altered Mental Status - History of Present Illness Initial Comments: Patient is a 47-year-old female brought in by EMS for possible opiate overdose. EMS gave 2 mg of Narcan with minimal reaction. Patient is still lethargic vital signs are stable. Family at bedside. History per EMS. Patient was down for unknown amount of time. Found house unresponsive. Complaint: other (overdose) -: Sudden Intent: unknown How Overdose Was Discovered: called family/friend, called 911 Context: Intentional Overdose: other (unknown of having any issues that will cause her to overdose) Context: Accidental Overdose: uncertain what happened Associated Symptoms: lethargy Treatments Prior to Arrival: narcan, IV fluids - Related Data Home Medications Medication Instructions Recorded Confirmed Last Taken Tizanidine HCl [Zanaflex] 4 mg PO TID PRN 12/14/14 11/09/17 03/07/17 Spironolactone [Aldactone] 25 mg PO DAILY 03/22/15 11/09/17 03/08/17 Ondansetron [Zofran TAB] 4 mg PO Q6HR PRN 04/15/15 11/09/17 03/07/17 Oxycodone HCl/Acetaminophen 1 each PO QID PRN 03/07/17 11/09/17 03/07/17 [Percocet 10/325 mg] Bepotastine Besilate [Bepreve 1.5%] 1 drop OU BID 11/09/17 11/09/17 Unknown DULoxetine [Cymbalta] 60 mg PO QDAY 11/09/17 11/09/17 Unknown Doxepin [SINEquan] 50 mg PO QPM 11/09/17 11/09/17 Unknown Eszopiclone [Lunesta] 3 mg PO QPM 11/09/17 11/09/17 Unknown Gabapentin [Neurontin] 400 mg PO QAM 11/09/17 11/09/17 Unknown Gabapentin [Neurontin] 800 mg PO QPM 11/09/17 11/09/17 Unknown Loperamide [Imodium] 2 mg PO PRN PRN 11/09/17 11/09/17 Unknown Loteprednol Etabonate [Alrex 0.2%] 1 drop OP QID 11/09/17 11/09/17 Unknown Lubiprostone (Nf) [Amitiza Cap 24 mcg PO BID 11/09/17 11/09/17 Unknown (Nf)] Metoprolol [Lopressor] 100 mg PO BID 11/09/17 11/09/17 Unknown Multivitamin with Folic Acid 1 tab PO DAILY 11/09/17 11/09/17 Unknown [Thera Tablet] Pantoprazole [Protonix] 40 mg PO QDAY 11/09/17 11/09/17 Unknown Promethazine [Phenergan TAB] 25 mg PO Q6HR PRN 11/09/17 11/09/17 Unknown Rizatriptan Benzoate [Maxalt] 10 mg PO PRN 11/09/17 11/09/17 Unknown Sulfacetamide/Prednisolone 5 ml OP TID 11/09/17 11/09/17 Unknown [Blephamide Eye Drops] busPIRone [Buspar] 15 mg PO TID 11/09/17 11/09/17 Unknown Previous Rx's Medication Instructions Recorded Last Taken Type Docusate Sodium [Colace ORAL LIQ] 100 mg PO TID PRN #20 oralsyr 10/20/17 Unknown Rx Allergies Allergy/AdvReac Type Severity Reaction Status Date / Time No Known Allergies Allergy Verified 12/14/14 06:02 ED Review of Systems ROS: Stated complaint: OVERDOSE Other details as noted in HPI Comment: Unobtainable due to pts medical conditions ED Past Medical Hx - Past Medical History Previous Medical History?: Yes Hx Hypertension: Yes Hx Heart Attack/AMI: No (DENIES) Hx Congestive Heart Failure: No Hx Diabetes: No Hx GERD: Yes Hx Arthritis: Yes Hx Seizures: Yes (2014, LAST AND ONLY EPISODE, THEY TOOK ME OFF MEDICINE) Hx Psychiatric Treatment: Yes (bipolar disorder) Hx Asthma: No Hx COPD: No Hx HIV: No Additional medical history: Chronic pain - Surgical History Past Surgical History?: Yes Hx Cholecystectomy: Yes Additional Surgical History: Tubal ligation, gastric bypass, left shoulder surgery - Family History Family history: hypertension - Social History Smoking Status: Never Smoker Substance Use Type: Prescribed - Medications Home Medications: Home Medications Medication Instructions Recorded Confirmed Last Taken Type Tizanidine HCl [Zanaflex] 4 mg PO TID PRN 12/14/14 11/09/17 03/07/17 History Spironolactone [Aldactone] 25 mg PO DAILY 03/22/15 11/09/17 03/08/17 History Ondansetron [Zofran TAB] 4 mg PO Q6HR PRN 04/15/15 11/09/17 03/07/17 History Oxycodone HCl/Acetaminophen 1 each PO QID PRN 03/07/17 11/09/17 03/07/17 History [Percocet 10/325 mg] Docusate Sodium [Colace ORAL LIQ] 100 mg PO TID PRN #20 oralsyr 10/20/17 Unknown Rx Bepotastine Besilate [Bepreve 1.5%] 1 drop OU BID 11/09/17 11/09/17 Unknown History DULoxetine [Cymbalta] 60 mg PO QDAY 11/09/17 11/09/17 Unknown History Doxepin [SINEquan] 50 mg PO QPM 11/09/17 11/09/17 Unknown History Eszopiclone [Lunesta] 3 mg PO QPM 11/09/17 11/09/17 Unknown History Gabapentin [Neurontin] 400 mg PO QAM 11/09/17 11/09/17 Unknown History Gabapentin [Neurontin] 800 mg PO QPM 11/09/17 11/09/17 Unknown History Loperamide [Imodium] 2 mg PO PRN PRN 11/09/17 11/09/17 Unknown History Loteprednol Etabonate [Alrex 0.2%] 1 drop OP QID 11/09/17 11/09/17 Unknown History Lubiprostone (Nf) [Amitiza Cap 24 mcg PO BID 11/09/17 11/09/17 Unknown History (Nf)] Metoprolol [Lopressor] 100 mg PO BID 11/09/17 11/09/17 Unknown History Multivitamin with Folic Acid 1 tab PO DAILY 11/09/17 11/09/17 Unknown History [Thera Tablet] Pantoprazole [Protonix] 40 mg PO QDAY 11/09/17 11/09/17 Unknown History Promethazine [Phenergan TAB] 25 mg PO Q6HR PRN 11/09/17 11/09/17 Unknown History Rizatriptan Benzoate [Maxalt] 10 mg PO PRN 11/09/17 11/09/17 Unknown History Sulfacetamide/Prednisolone 5 ml OP TID 11/09/17 11/09/17 Unknown History [Blephamide Eye Drops] busPIRone [Buspar] 15 mg PO TID 11/09/17 11/09/17 Unknown History ED Physical Exam - General Limitations: Altered Mental Status General appearance: lethargic - Head Head exam: Present: atraumatic, normocephalic - Eye Eye exam: Present: normal appearance Pupils: Present: normal accommodation - ENT ENT exam: Present: mucous membranes dry - Neck Neck exam: Present: normal inspection - Respiratory Respiratory exam: Present: normal lung sounds bilaterally. Absent: respiratory distress - Cardiovascular Cardiovascular Exam: Present: regular rate, normal rhythm. Absent: systolic murmur, diastolic murmur, rubs, gallop - GI/Abdominal GI/Abdominal exam: Present: soft, normal bowel sounds - Extremities Exam Extremities exam: Present: normal inspection - Back Exam Back exam: Present: normal inspection - Neurological Exam Neurological exam: Present: alert, altered - Psychiatric Psychiatric exam: Present: normal affect, normal mood - Skin Skin exam: Present: warm, dry, intact, normal color. Absent: rash ED Course Vital Signs 11/09/17 11/09/17 11/09/17 02:14 02:16 02:24 Temperature Pulse Rate 55 L 59 L Respiratory 20 17 Rate Blood Pressure Blood Pressure 163/100 [Left] O2 Sat by Pulse 100 100 Oximetry 11/09/17 11/09/17 11/09/17 02:31 02:45 02:53 Temperature 95.1 F L Pulse Rate 48 L 55 L Respiratory 15 12 16 Rate Blood Pressure 163/100 Blood Pressure [Left] O2 Sat by Pulse 100 100 Oximetry 11/09/17 11/09/17 11/09/17 03:01 03:15 03:31 Temperature Pulse Rate 66 68 67 Respiratory 21 15 18 Rate Blood Pressure 160/112 128/84 173/116 Blood Pressure [Left] O2 Sat by Pulse 100 100 100 Oximetry 11/09/17 03:45 Temperature Pulse Rate 67 Respiratory 16 Rate Blood Pressure 168/96 Blood Pressure [Left] O2 Sat by Pulse 100 Oximetry ED Medical Decision Making - Lab Data Result diagrams: 11/09/17 03:00 11/09/17 03:00 - EKG Data -: EKG Interpreted by Me EKG shows normal: sinus rhythm Rate: bradycardia - EKG Data Interpretation: no acute changes, normal EKG - Radiology Data Radiology results: report reviewed CT no acute findings. - Medical Decision Making Patient is a 47-year-old female that presented to the emergency room if possible opiate overdose. She was then given 12 mg of Narcan total. Patient is still lethargic but becoming more arousable. Will consult hospitalist for admission. Dr. Carroll accepted the patient and will assume care. - Differential Diagnosis od. lethargic Critical Care Time: Yes Critical care attestation.: If time is entered above; I have spent that time in minutes in the direct care of this critically ill patient, excluding procedure time. Critical Care Time: 60 minutes spent with patient for critical care time ED Disposition Clinical Impression: Overdose, Opiate overdose, Altered mental status, Lethargic Disposition: DC-09 OP ADMIT IP TO THIS HOSP Is pt being admited?: Yes Does the pt Need Aspirin: No Condition: Critical Time of Disposition: 04:52
[2017-11-09] MEDS ORDERED: MILK OF MAGNESIA PO PRN (05:22)
[2017-11-09] MEDS ORDERED: DULCOLAX PR PRN (05:22)
--- NOTE | 2017-11-09 05:30 | History and Physical Report ---
History of Present Illness Date of examination: 11/09/17 History of present illness: 47-year-old woman with a history of hypertension, hyperlipidemia, seizure, bipolar, GERD, chronic pain was brought to the emergency room because she was extremely lethargic. Her at bedside state that she took too much Percocet. She is status post hysterectomy September and a hernia repair 1-2 weeks ago. She was given Narcan in the emergency room 2 doses with good response but it was not sustained. Patient is unable to give a history, review of system unobtainable PAST MEDICAL HISTORY:hypertension, hyperlipidemia, seizure, bipolar, GERD, chronic pain PAST SURGICAL HISTORY: Hysterectomy, hernia repair, gastric bypass FAMILY HISTORY: Hypertension SOCIAL HISTORY: Denies alcohol, tobacco, drugs Medications and Allergies Allergies Allergy/AdvReac Type Severity Reaction Status Date / Time No Known Allergies Allergy Verified 12/14/14 06:02 Home Medications Medication Instructions Recorded Confirmed Last Taken Type Tizanidine HCl [Zanaflex] 4 mg PO TID PRN 12/14/14 11/09/17 03/07/17 History Spironolactone [Aldactone] 25 mg PO DAILY 03/22/15 11/09/17 03/08/17 History Ondansetron [Zofran TAB] 4 mg PO Q6HR PRN 04/15/15 11/09/17 03/07/17 History Oxycodone HCl/Acetaminophen 1 each PO QID PRN 03/07/17 11/09/17 03/07/17 History [Percocet 10/325 mg] Docusate Sodium [Colace ORAL LIQ] 100 mg PO TID PRN #20 oralsyr 10/20/17 Unknown Rx Bepotastine Besilate [Bepreve 1.5%] 1 drop OU BID 11/09/17 11/09/17 Unknown History DULoxetine [Cymbalta] 60 mg PO QDAY 11/09/17 11/09/17 Unknown History Doxepin [SINEquan] 50 mg PO QPM 11/09/17 11/09/17 Unknown History Eszopiclone [Lunesta] 3 mg PO QPM 11/09/17 11/09/17 Unknown History Gabapentin [Neurontin] 400 mg PO QAM 11/09/17 11/09/17 Unknown History Gabapentin [Neurontin] 800 mg PO QPM 11/09/17 11/09/17 Unknown History Loperamide [Imodium] 2 mg PO PRN PRN 11/09/17 11/09/17 Unknown History Loteprednol Etabonate [Alrex 0.2%] 1 drop OP QID 11/09/17 11/09/17 Unknown History Lubiprostone (Nf) [Amitiza (Nf)] 24 mcg PO BID 11/09/17 11/09/17 Unknown History Metoprolol [Lopressor TAB] 100 mg PO BID 11/09/17 11/09/17 Unknown History Multivitamin with Folic Acid 1 tab PO DAILY 11/09/17 11/09/17 Unknown History [Thera Tablet] Pantoprazole [Protonix TAB] 40 mg PO QDAY 11/09/17 11/09/17 Unknown History Promethazine [Phenergan TAB] 25 mg PO Q6HR PRN 11/09/17 11/09/17 Unknown History Rizatriptan Benzoate [Maxalt] 10 mg PO PRN 11/09/17 11/09/17 Unknown History Sulfacetamide/Prednisolone 5 ml OP TID 11/09/17 11/09/17 Unknown History [Blephamide Eye Drops] busPIRone [Buspar] 15 mg PO TID 11/09/17 11/09/17 Unknown History Active Meds: Active Medications Acetaminophen (Tylenol) 650 mg PO Q4H PRN PRN Reason: Pain MILD(1-3)/Fever >100.5/REGALADO Bisacodyl (Dulcolax) 10 mg [place] QDAY PRN PRN Reason: Constipation unrelieved by MOM Enoxaparin Sodium (Lovenox) 30 mg SUB-Q QDAY PATITO Sodium Chloride (Nacl 0.45% 1000 Ml) 1,000 mls @ 100 mls/hr IV DIRECT PATITO Magnesium Hydroxide (Milk Of Magnesia) 30 ml PO Q4H PRN PRN Reason: Constipation Ondansetron HCl (Zofran) 4 mg IV Q8H PRN PRN Reason: N/V unrelieved by Reglan Exam - Physical Exam Narrative exam: Gen. appearance: Patient lying in bed in no acute distress HEENT: Normocephalic/atraumatic, pupils equal round reactive to light, unable to do extra occular movement , no scleral icterus, no JVD or thyromegaly or nodule, neck is supple, mucous membrane moist, unable to examine oral cavity Heart: S1-S2, regular rate and rhythm Lungs: Clear to auscultation bilateral breathing comfortable Abdomen: Positive bowel sounds, nontender, nondistended, no organomegaly Extremities: No edema, cyanosis, clubbing Neuro:: Lethargic Skin: No rash, nodules, warm dry - Constitutional Vitals: Temp Pulse Resp BP Pulse Ox 95.1 F L 63 20 112/71 100 11/09/17 02:53 11/09/17 05:15 11/09/17 05:15 11/09/17 05:15 11/09/17 05:15 Results - Labs CBC & Chem 7: 11/09/17 03:00 11/09/17 03:00 Labs: Abnormal lab results 11/09/17 11/09/17 Range/Units 03:00 03:00 [place] % (Auto) 11.1 H (0.0-7.3) % [place] # 1.0 H (0.0-0.8) K/mm3 Sodium 135 L (137-145) mmol/L Potassium 3.5 L (3.6-5.0) mmol/L BUN 6 L (7-17) mg/dL Creatinine 0.5 L (0.7-1.2) mg/dL Glucose 102 H (65-100) mg/dL - Imaging and Cardiology CT Scan - head: report reviewed Assessment and Plan Assessment Drug overdose,? intentional hypertension hyperlipidemia seizure bipolar GERD chronic pain Plan Admit to medicine Start IV fluid, [address]3 [address] with a sitter IV hydralazine for blood pressure control DVT prophalaxis
[2017-11-09] MEDS ORDERED: NACL 0.45% 1000 ML 1,000 ML IV SCH (06:00)
[2017-11-09] MEDS: LOVENOX SUB-Q SCH (09:42)
[2017-11-09] MEDS ORDERED: LOVENOX SUB-Q SCH (10:00)
--- NOTE | 2017-11-09 10:45 | Discharge Summary ---
Providers - Providers Date of Admission: 11/09/17 05:22 Attending physician: MARYANA NORRIS MD 11/09/17 10:09 Consult to Mental Health [CONS] Routine Reason For Exam: drug overdose Place consult to:: mental health Notified:: ricky TONY Phone number called:: [phone] Was contact made?: Yes If yes, spoke with:: Lor Time called:: 10:31 Primary care physician: BART CALDERON Hospitalization Reason for admission: drug overdose Condition: Stable Hospital course: 47-year-old woman with a history of hypertension, hyperlipidemia, seizure, bipolar, GERD, chronic pain was brought to the emergency room because she was extremely lethargic. Her at bedside state that she took too much Percocet. She is status post hysterectomy September and a hernia repair 1-2 weeks ago. She was given Narcan in the emergency room 2 doses with good response but it was not sustained. patient seen today and states she normally will sleep for long periods of time and did not take more percocet than normal. she has chronic bradycardia and is being followed by data programmer. CT head was normal. she states she is hungry. will be seen and by mental health prior to discharge. she is medically stable for discharge. at bedside collaborates patients story but on re interview by psych said it was unsuall for her to sleep that long. considering all this and how much narcan was used. Psych felt it was important to monitor her in psych facility. per patient cardiology recently increased BB to 100mg BID due to blood pressure and is aware of the bradycardia she is again asymptomatic. Patient uncertain of the pulse was initially was noted to have elevated blood pressure. This is likely because medications were reconciled once this was done patient's blood pressure heart rate improved. This could also the reson the Lopressor was recently increased as her blood pressure went to the 140s on ambulation. Lower reinstitution of her beta vipul and improved to the 80s. Hypertensive urgency Altered mental status likely iatrogenic from medication Drug overdose,? intentional Hypertension Hyperlipidemia seizure bipolar GERD chronic pain Disposition: DC/TX-65 PSY HOSP/PSY UNIT Time spent for discharge: 35 mins Core Measure Documentation - Palliative Care Palliative Care/ Comfort Measures: Not Applicable - Core Measures Any of the following diagnoses?: none - VTE Discharge Requirements Deep Vein Thrombosis/Pulmonary Embolism Present on Admission: No Exam - Physical Exam Narrative exam: VITAL SIGNS: Reviewed. GENERAL: The patient appeared well nourished and normally developed. Vital signs as documented. HEAD: No signs of head trauma. EYES: Pupils are equal. Extraocular motions intact. EARS: Hearing grossly intact. MOUTH: Oropharynx is normal. NECK: No adenopathy, no JVD. CHEST: Chest with clear breath sounds bilaterally. No wheezes, rales, or rhonchi. CARDIAC: Regular rate and rhythm. S1 and S2, without murmurs, gallops, or rubs. VASCULAR: No Edema. Peripheral pulses normal and equal in all extremities. ABDOMEN: Soft, without detectable tenderness. No sign of distention. No rebound or guarding, and no masses palpated. Bowel Sounds normal. MUSCULOSKELETAL: Good range of motion of all major joints. Extremities without clubbing, cyanosis or edema. NEUROLOGIC EXAM: Alert and oriented x 3. No focal sensory or strength deficits. Speech normal. Follows commands. PSYCHIATRIC: Mood normal. SKIN: No rash or lesions. - Constitutional Vitals: Temp Pulse Resp BP Pulse Ox 95.1 F L 58 L 12 123/70 100 11/09/17 02:53 11/09/17 07:45 11/09/17 07:45 11/09/17 07:45 11/09/17 07:45 Plan Activity: advance as tolerated, fall precautions Diet: low fat Special Instructions: record daily BP diary Follow up with: BART CALDERON MD [Primary Care Provider] - 3-5 Days
[2017-11-09] MEDS ORDERED: K-DUR PO ONE (11:11)
--- NOTE | 2017-11-09 18:25 | Progress Note ---
Assessment and Plan Assessment and plan: 47-year-old woman with a history of hypertension, hyperlipidemia, seizure, bipolar, GERD, chronic pain was brought to the emergency room because she was extremely lethargic. Her at bedside state that she took too much Percocet. She is status post hysterectomy September and a hernia repair 1-2 weeks ago. She was given Narcan in the emergency room 2 doses with good response but it was not sustained. Patient is unable to give a history, review of system unobtainable patient seen today and states she normally will sleep for long periods of time and did not take more percocet than normal. she has chronic bradycardia and is being followed by geriatric nurse. CT head was normal. she states she is hungry. will be seen and by mental health prior to discharge. she is medically stable for discharge. at bedside collabrates patients story. per patient cardiology recently increased BB to 100mg BID due to blood prssure and is aware of the bradycardia she is again asymptomatic Drug overdose,? intentional hypertension hyperlipidemia seizure bipolar GERD chronic pain Plan continue supportive care Discussed with [facility] substation technician, will await psychiatry eval Medically stable for discharge once cleared by psych Continue [address] with a sitter IV hydralazine for blood pressure control DVT prophalaxis Plan discussed with patient and spouse at bedside with patients permission History Interval history: Patient seen and examined in no acute distress. states she went to sleep at home then woke up here in the hospital. denies suicidal or homicidal ideation Hospitalist Physical - Constitutional Vitals: Temp Pulse Resp BP Pulse Ox 95.1 F L 58 L 12 123/70 100 11/09/17 02:53 11/09/17 08:25 11/09/17 07:45 11/09/17 07:45 11/09/17 07:45 General appearance: Present: no acute distress, well-nourished - EENT Eyes: Present: PERRL, EOM intact ENT: hearing intact, clear oral mucosa, dentition normal - Neck Neck: Present: supple, normal ROM - Respiratory Respiratory: bilateral: CTA - Cardiovascular Rhythm: regular Heart Sounds: Present: S1 & S2 - Extremities Extremities: no ischemia, pulses intact, pulses symmetrical, No edema, normal temperature, normal color, Full ROM Peripheral Pulses: within normal limits - Abdominal General gastrointestinal: soft, non-tender, non-distended, normal bowel sounds - Integumentary Integumentary: Present: clear, warm, dry - Psychiatric Psychiatric: appropriate mood/affect, intact judgment & insight, memory intact, cooperative - Neurologic Neurologic: CNII-XII intact, moves all extremities - Allied Health Allied health notes reviewed: nursing Results - Labs CBC & Chem 7: 11/10/17 05:51 11/10/17 05:51 Labs: Laboratory Last Values WBC 8.6 K/mm3 (4.5-11.0) 11/09/17 03:00 RBC 4.00 M/mm3 (3.65-5.03) 11/09/17 03:00 Hgb 12.4 gm/dl (10.1-14.3) 11/09/17 03:00 Hct 36.9 % (30.3-42.9) 11/09/17 03:00 MCV 92 fl (79-97) 11/09/17 03:00 MCH 31 pg (28-32) 11/09/17 03:00 MCHC 34 % (30-34) 11/09/17 03:00 RDW 15.1 % (13.2-15.2) 11/09/17 03:00 Plt Count 360 K/mm3 (140-440) 11/09/17 03:00 Lymph % (Auto) 23.0 % (13.4-35.0) 11/09/17 03:00 [place] % (Auto) 11.1 % (0.0-7.3) H 11/09/17 03:00 Eos % (Auto) 4.1 % (0.0-4.3) 11/09/17 03:00 Baso % (Auto) 0.7 % (0.0-1.8) 11/09/17 03:00 Lymph # 2.0 K/mm3 (1.2-5.4) 11/09/17 03:00 [place] # 1.0 K/mm3 (0.0-0.8) H 11/09/17 03:00 Eos # 0.4 K/mm3 (0.0-0.4) 11/09/17 03:00 Baso # 0.1 K/mm3 (0.0-0.1) 11/09/17 03:00 Seg Neutrophils % 61.1 % (40.0-70.0) 11/09/17 03:00 Seg Neutrophils # 5.3 K/mm3 (1.8-7.7) 11/09/17 03:00 Sodium 135 mmol/L (137-145) L 11/09/17 03:00 Potassium 3.5 mmol/L (3.6-5.0) L 11/09/17 03:00 Chloride 99.8 mmol/L (98-107) 11/09/17 03:00 Carbon Dioxide 24 mmol/L (22-30) 11/09/17 03:00 Anion Gap 15 mmol/L 11/09/17 03:00 BUN 6 mg/dL (7-17) L 11/09/17 03:00 Creatinine 0.5 mg/dL (0.7-1.2) L 11/09/17 03:00 Estimated GFR > 60 ml/min 11/09/17 03:00 BUN/Creatinine Ratio 12 % 11/09/17 03:00 Glucose 102 mg/dL (65-100) H 11/09/17 03:00 POC Glucose 101 (70-105) 11/09/17 03:02 Calcium 8.6 mg/dL (8.4-10.2) 11/09/17 03:00 Urine Color Yellow (Yellow) 11/09/17 03:08 Urine Turbidity Clear (Clear) 11/09/17 03:08 Urine pH 6.0 (5.0-7.0) 11/09/17 03:08 Ur Specific [place] 1.014 (1.003-1.030) 11/09/17 03:08 Urine Protein <15 mg/dl mg/dL (Negative) 11/09/17 03:08 Urine Glucose (UA) Neg mg/dL (Negative) 11/09/17 03:08 Urine Ketones Neg mg/dL (Negative) 11/09/17 03:08 Urine Blood Neg (Negative) 11/09/17 03:08 Urine Nitrite Neg (Negative) 11/09/17 03:08 Ur Reducing Substances Not Reportable 11/09/17 03:08 Urine Bilirubin Neg (Negative) 11/09/17 03:08 Urine Ictotest Not Reportable 11/09/17 03:08 Urine Urobilinogen < 2.0 mg/dL (<2.0) 11/09/17 03:08 Ur Leukocyte Esterase Neg (Negative) 11/09/17 03:08 Urine WBC (Auto) 1.0 /HPF (0.0-6.0) 11/09/17 03:08 Urine RBC (Auto) 2.0 /HPF (0.0-6.0) 11/09/17 03:08 U Epithel Cells (Auto) 1.0 /HPF (0-13.0) 11/09/17 03:08 Urine Mucus Few /HPF 11/09/17 03:08 Urine HCG, Qual Negative (Negative) 11/09/17 03:08 Salicylates < 0.3 mg/dL (2.8-20.0) L 11/09/17 03:00 Urine Opiates Screen Presumptive negative 11/09/17 03:08 Urine Methadone Screen Presumptive negative 11/09/17 03:08 Acetaminophen < 15.0 ug/mL (10.0-30.0) 11/09/17 03:00 Ur Barbiturates Screen Presumptive negative 11/09/17 03:08 Ur Phencyclidine Scrn Presumptive negative 11/09/17 03:08 Ur Amphetamines Screen Presumptive negative 11/09/17 03:08 U Benzodiazepines Scrn Presumptive negative 11/09/17 03:08 Urine Cocaine Screen Presumptive negative 11/09/17 03:08 U Marijuana (THC) Screen Presumptive negative 11/09/17 03:08 Drugs of Abuse Note Disclamer 11/09/17 03:08 Plasma/Serum Alcohol < 0.01 gm% (0-0.07) 11/09/17 03:00 - Imaging and Cardiology CT Scan - head: image reviewed (no acute pathology)
[2017-11-09] MEDS: TYLENOL PO PRN (18:44)
[2017-11-09] MEDS ORDERED: ULTRAM PO PRN (21:23)
[2017-11-09] MEDS: NACL 0.9% 1000 ML 1,000 ML IV SCH (22:51)
[2017-11-10] MEDS: TYLENOL PO PRN (01:29)
[2017-11-10] MEDS: ZOFRAN IV PRN ×2 (01:51→11:24)
[2017-11-10] MEDS: NACL 0.9% 1000 ML 1,000 ML IV SCH ×2 (05:55→16:03)
[2017-11-10 06:16] LABS: Basophils % (Auto) 0.8 % (0.0-1.8); Eosinophils % (Auto) 1.5 % (0.0-4.3); Hematocrit 42.1 % (30.3-42.9); Hemoglobin 13.6 gm/dl (10.1-14.3); Mean Corpuscular HGB Conc 32 % (30-34); Mean Corpuscular Hemoglobin 30 pg (28-32); Mean Corpuscular Volume 91 fl (79-97); Platelet Count 411 K/mm3 (140-440); Red Blood Count 4.61 M/mm3 (3.65-5.03); Red Cell Distribution Width 15.1 % (13.2-15.2); White Blood Count 9.6 K/mm3 (4.5-11.0)
[2017-11-10 06:45] LABS: Anion Gap 16 mmol/L; BUN/Creatinine Ratio 8; Blood Urea Nitrogen 4 mg/dL (7-17); Calcium 8.4 mg/dL (8.4-10.2); Carbon Dioxide 24 mmol/L (22-30); Chloride 110.3 mmol/L (98-107); Glucose 77 mg/dL (65-100); Potassium 3.3 mmol/L (3.6-5.0); Sodium 147 mmol/L (137-145)
[2017-11-10] MEDS: LOVENOX SUB-Q SCH (09:26)
[2017-11-10] MEDS ORDERED: LOPRESSOR IV NR (09:30)
[2017-11-10] MEDS ORDERED: NON-FORMULARY (Tizanidine Hcl [Zanaflex] 4 MG) PO PRN (10:08)
[2017-11-10] MEDS ORDERED: NON-FORMULARY (Oxycodone Hcl/Acetaminophen [Percocet 10/325 Mg] 1 EACH) PO PRN (10:08)
[2017-11-10] MEDS ORDERED: RIZATRIPTAN BENZOATE 10 MG PO SCH (10:15)
[2017-11-10] MEDS ORDERED: CYMBALTA PO SCH (11:00)
[2017-11-10] MEDS ORDERED: K-DUR PO NR (11:00)
[2017-11-10] MEDS ORDERED: PROTONIX PO SCH (11:00)
[2017-11-10] MEDS ORDERED: ZOFRAN PO PRN (11:00)
[2017-11-10] MEDS ORDERED: PHENERGAN PO PRN (11:00)
[2017-11-10] MEDS ORDERED: IMODIUM PO PRN (11:00)
[2017-11-10] MEDS ORDERED: NEURONTIN PO SCH ×2 (11:00→18:00)
[2017-11-10] MEDS ORDERED: THERAGRAN Tab PO SCH (11:00)
[2017-11-10] MEDS ORDERED: ALDACTONE PO SCH (11:00)
[2017-11-10] MEDS: LOPRESSOR PO SCH ×2 (11:17→21:10)
[2017-11-10] MEDS: ROXICODONE PO PRN ×2 (11:25→18:53)
[2017-11-10] MEDS: PERCOCET 5/325 PO PRN ×2 (11:26→18:51)
[2017-11-10] MEDS ORDERED: COLACE PO PRN (12:00)
[2017-11-10] MEDS ORDERED: ZANAFLEX PO PRN (14:00)
[2017-11-10] MEDS ORDERED: PREDNISOLONE OP SCH (14:00)
[2017-11-10] MEDS ORDERED: LOTEPREDNOL ETABONATE OP SCH (14:00)
[2017-11-10] MEDS ORDERED: SULFACETAMIDE OP SCH (14:00)
--- NOTE | 2017-11-10 14:06 | Consultation ---
History of Present Illness - Reason for Consult Consult date: 11/10/17 Reason for consult: Mental Health Evaluation Requesting physician: MARYANA NORRIS - Chief Complaint Chief complaint: "I was in pain and wanted to sleep" - History of Present Psychiatric Illness Patient is a 47-year-old female brought in by EMS for possible overdose. Today patient is calm and cooperative during the assessment. She stated that she took 3 Percocet, 1 Doxepin, and 4 Zanaflex to go to sleep and help with her pain. She stated that she had been up for several hours dealing with pain and insomnia , she decided to take the medications. The patient is status post hysterectomy/ hernia repair in September 2017. The patient has a hx of depression and take Cymbalta. Per the ER note, the patient had to be given Narcan by EMS because she was found unresponsive when they arrived. She denies SI/HI's. She denies recreational drug use and alcohol consumption (etoh). Medications and Allergies Allergies Allergy/AdvReac Type Severity Reaction Status Date / Time No Known Allergies Allergy Verified 12/14/14 06:02 Home Medications Medication Instructions Recorded Confirmed Last Taken Type Tizanidine HCl [Zanaflex] 4 mg PO TID PRN 12/14/14 11/09/17 03/07/17 History Spironolactone [Aldactone] 25 mg PO DAILY 03/22/15 11/09/17 03/08/17 History Ondansetron [Zofran TAB] 4 mg PO Q6HR PRN 04/15/15 11/09/17 03/07/17 History Oxycodone HCl/Acetaminophen 1 each PO QID PRN 03/07/17 11/09/17 03/07/17 History [Percocet 10/325 mg] Docusate Sodium [Colace ORAL LIQ] 100 mg PO TID PRN #20 oralsyr 10/20/17 Unknown Rx Bepotastine Besilate [Bepreve 1.5%] 1 drop OU BID 11/09/17 11/09/17 Unknown History DULoxetine [Cymbalta] 60 mg PO QDAY 11/09/17 11/09/17 Unknown History Doxepin [SINEquan] 50 mg PO QPM 11/09/17 11/09/17 Unknown History Eszopiclone [Lunesta] 3 mg PO QPM 11/09/17 11/09/17 Unknown History Gabapentin [Neurontin] 400 mg PO QAM 11/09/17 11/09/17 Unknown History Gabapentin [Neurontin] 800 mg PO QPM 11/09/17 11/09/17 Unknown History Loperamide [Imodium] 2 mg PO PRN PRN 11/09/17 11/09/17 Unknown History Loteprednol Etabonate [Alrex 0.2%] 1 drop OP QID 11/09/17 11/09/17 Unknown History Lubiprostone (Nf) [Amitiza (Nf)] 24 mcg PO BID 11/09/17 11/09/17 Unknown History Metoprolol [Lopressor TAB] 100 mg PO BID 11/09/17 11/09/17 Unknown History Multivitamin with Folic Acid 1 tab PO DAILY 11/09/17 11/09/17 Unknown History [Thera Tablet] Pantoprazole [Protonix TAB] 40 mg PO QDAY 11/09/17 11/09/17 Unknown History Promethazine [Phenergan TAB] 25 mg PO Q6HR PRN 11/09/17 11/09/17 Unknown History Rizatriptan Benzoate [Maxalt] 10 mg PO PRN 11/09/17 11/09/17 Unknown History Sulfacetamide/Prednisolone 5 ml OP TID 11/09/17 11/09/17 Unknown History [Blephamide Eye Drops] busPIRone [Buspar] 15 mg PO TID 11/09/17 11/09/17 Unknown History Active Meds: Active Medications Acetaminophen (Tylenol) 650 mg PO Q4H PRN PRN Reason: Pain MILD(1-3)/Fever >100.5/REGALADO Last Admin: 11/10/17 01:29 Dose: 650 mg Bisacodyl (Dulcolax) 10 mg MD QDAY PRN PRN Reason: Constipation unrelieved by MOM Buspirone HCl (Buspar) 15 mg PO TID PATITO Docusate Sodium (Colace) 100 mg PO TID PRN PRN Reason: Constipation Doxepin HCl (Sinequan) 50 mg PO QPM [facility] Duloxetine HCl (Cymbalta) 60 mg PO QDAY [facility] Last Admin: 11/10/17 11:14 Dose: 60 mg Enoxaparin Sodium (Lovenox) 40 mg SUB-Q QDAY@1000 [facility] Last Admin: 11/10/17 09:26 Dose: 40 mg Gabapentin (Neurontin) 400 mg PO QAM [facility] Last Admin: 11/10/17 11:16 Dose: 400 mg Gabapentin (Neurontin) 800 mg PO QPM [facility] Sodium Chloride (Nacl 0.9% 1000 Ml) 1,000 mls @ 125 mls/hr IV DIRECT [facility] Last Admin: 11/10/17 05:55 Dose: 125 mls/hr Loperamide HCl (Imodium) 2 mg PO PRN PRN PRN Reason: Diarrhea Magnesium Hydroxide (Milk Of Magnesia) 30 ml PO Q4H PRN PRN Reason: Constipation Metoprolol Tartrate (Lopressor) 100 mg PO BID [facility] Last Admin: 11/10/17 11:17 Dose: 100 mg Miscellaneous Medication (Bepotastine Besilate [Bepreve 1.5%]) 1 drop OU BID [facility] Miscellaneous Medication (Eszopiclone [Lunesta]) 3 mg PO QPM [facility] Miscellaneous Medication (Loteprednol Etabonate [Alrex 0.2%]) 1 drop OP QID [facility] Miscellaneous Medication (Lubiprostone (Nf)) 24 mcg PO BID [facility] Miscellaneous Medication (Rizatriptan Benzoate [Maxalt]) 10 mg PO PRN [facility] Miscellaneous Medication (Sulfacetamide/Prednisolone [Blephamide Eye Drops]) 5 ml OP TID [facility] Multivitamins (Theragran Tab) 1 each PO DAILY [facility] Last Admin: 11/10/17 11:15 Dose: 1 each Ondansetron HCl (Zofran) 4 mg IV Q8H PRN PRN Reason: N/V unrelieved by Regyung Last Admin: 11/10/17 11:24 Dose: 4 mg Ondansetron HCl (Zofran) 4 mg PO Q6H PRN PRN Reason: Nausea And Vomiting Oxycodone HCl (Roxicodone) 5 mg PO QID PRN PRN Reason: Pain, Moderate (4-6) Last Admin: 11/10/17 11:25 Dose: 5 mg Oxycodone/Acetaminophen (Percocet 5/325) 1 tab PO QID PRN PRN Reason: Pain, Moderate (4-6) Last Admin: 11/10/17 11:26 Dose: 1 tab Pantoprazole Sodium (Protonix) 40 mg PO QDAY [facility] Last Admin: 11/10/17 11:17 Dose: 40 mg Promethazine HCl (Phenergan) 25 mg PO Q6H PRN PRN Reason: Nausea Spironolactone (Aldactone) 25 mg PO DAILY PATITO Last Admin: 11/10/17 11:15 Dose: 25 mg Tizanidine HCl (Zanaflex) 4 mg PO TID PRN PRN Reason: Muscle Spasm Tramadol HCl (Ultram) 50 mg PO Q4H PRN PRN Reason: Pain, Moderate (4-6) Last Admin: 11/10/17 05:51 Dose: 50 mg Past psychiatric history - Past Medical History Past Medical History: GERD, seizures Mental Status Exam - Vital signs Last Vital Signs Temp 98.5 F 11/10/17 12:04 Pulse 77 11/10/17 12:04 Resp 18 11/10/17 12:04 BP 156/104 11/10/17 12:04 Pulse Ox 100 11/10/17 12:04 - Exam Narrative exam: MSE: Appearance: calm, cooperative Behavior: regular eye contact Speech: regular rate and tone Mood: "okay" Affect: congruent to mood Thought Process: circumstantial Thought Content: denies SI/HI's and AVH's Motor Activity: ambulatory Cognition: A/Ox3 Insight: variable Judgment: variable Results Result Diagrams: 11/10/17 05:51 11/10/17 05:51 Abnormal lab results 11/10/17 11/10/17 Range/Units 05:51 05:51 [place] % (Auto) 12.2 H (0.0-7.3) % [place] # 1.2 H (0.0-0.8) K/mm3 Sodium 147 H D (137-145) mmol/L Potassium 3.3 L (3.6-5.0) mmol/L Chloride 110.3 H (98-107) mmol/L BUN 4 L (7-17) mg/dL Creatinine 0.5 L (0.7-1.2) mg/dL All other labs normal. Assessment and Plan Assessment and plan: Impression: Hx of depression. Overdosed on multiple medications. Today patient is calm and cooperative during the assessment. Recommendation/Plan: Continue 1013 with placement to [facility] today. Discussed with patient the importance of proper administration of prescription medications.
--- NOTE | 2017-11-10 14:42 | Progress Note ---
Assessment and Plan Assessment and plan: 47-year-old woman with a history of hypertension, hyperlipidemia, seizure, bipolar, GERD, chronic pain was brought to the emergency room because she was extremely lethargic. Her at bedside state that she took too much Percocet. She is status post hysterectomy September and a hernia repair 1-2 weeks ago. She was given Narcan in the emergency room 2 doses with good response but it was not sustained. Patient is unable to give a history, review of system unobtainable patient seen today and states she normally will sleep for long periods of time and did not take more percocet than normal. she has chronic bradycardia and is being followed by domestic helper. CT head was normal. she states she is hungry. Will be seen and by mental health prior to discharge. she is medically stable for discharge. Drug overdose,? intentional hypertension urgency Hypokalemia hyperlipidemia seizure bipolar GERD chronic pain Plan continue supportive care Replace k Discussed with Maribel junior php developer Discussed with Psychiatry and considering how much narcan need to reverse and revive patient and also now stating that it is not normal for patient to sleep this long, will proceed in placement and continued psych eval Medically stable for discharge to inpatient psych Continue [address] with a sitter IV hydralazine for blood pressure control DVT prophalaxis Plan discussed with patient and spouse at bedside with patients permission History Interval history: Patient seen and examined in no acute distress. aggravated about still being in the hospital. spouse not present. denies chest pain but reports chronic body pain and requesting high pain doses. Hospitalist Physical - Physical exam Narrative exam: VITAL SIGNS: Reviewed. GENERAL: The patient appeared well nourished and normally developed. Vital signs as documented. HEAD: No signs of head trauma. EYES: Pupils are equal. Extraocular motions intact. EARS: Hearing grossly intact. MOUTH: Oropharynx is normal. NECK: No adenopathy, no JVD. CHEST: Chest with clear breath sounds bilaterally. No wheezes, rales, or rhonchi. CARDIAC: Regular rate and rhythm. S1 and S2, without murmurs, gallops, or rubs. VASCULAR: No Edema. Peripheral pulses normal and equal in all extremities. ABDOMEN: Soft, without detectable tenderness. No sign of distention. No rebound or guarding, and no masses palpated. Bowel Sounds normal. MUSCULOSKELETAL: Good range of motion of all major joints. Extremities without clubbing, cyanosis or edema. NEUROLOGIC EXAM: Alert and oriented x 3. No focal sensory or strength deficits. Speech normal. Follows commands. PSYCHIATRIC: Mood normal. SKIN: No rash or lesions. - Constitutional Vitals: Temp Pulse Resp BP Pulse Ox 98.5 F 77 18 156/104 100 11/10/17 12:04 11/10/17 12:04 11/10/17 12:04 11/10/17 12:04 11/10/17 12:04 General appearance: Present: no acute distress, well-nourished Results - Labs CBC & Chem 7: 11/10/17 05:51 11/10/17 05:51 Labs: Laboratory Last Values WBC 9.6 K/mm3 (4.5-11.0) 11/10/17 05:51 RBC 4.61 M/mm3 (3.65-5.03) 11/10/17 05:51 Hgb 13.6 gm/dl (10.1-14.3) 11/10/17 05:51 Hct 42.1 % (30.3-42.9) 11/10/17 05:51 MCV 91 fl (79-97) 11/10/17 05:51 MCH 30 pg (28-32) 11/10/17 05:51 MCHC 32 % (30-34) 11/10/17 05:51 RDW 15.1 % (13.2-15.2) 11/10/17 05:51 Plt Count 411 K/mm3 (140-440) 11/10/17 05:51 Lymph % (Auto) 30.7 % (13.4-35.0) 11/10/17 05:51 [place] % (Auto) 12.2 % (0.0-7.3) H 11/10/17 05:51 Eos % (Auto) 1.5 % (0.0-4.3) 11/10/17 05:51 Baso % (Auto) 0.8 % (0.0-1.8) 11/10/17 05:51 Lymph # 3.0 K/mm3 (1.2-5.4) 11/10/17 05:51 [place] # 1.2 K/mm3 (0.0-0.8) H 11/10/17 05:51 Eos # 0.1 K/mm3 (0.0-0.4) 11/10/17 05:51 Baso # 0.1 K/mm3 (0.0-0.1) 11/10/17 05:51 Seg Neutrophils % 54.8 % (40.0-70.0) 11/10/17 05:51 Seg Neutrophils # 5.3 K/mm3 (1.8-7.7) 11/10/17 05:51 Sodium 147 mmol/L (137-145) H D 11/10/17 05:51 Potassium 3.3 mmol/L (3.6-5.0) L 11/10/17 05:51 Chloride 110.3 mmol/L (98-107) H 11/10/17 05:51 Carbon Dioxide 24 mmol/L (22-30) 11/10/17 05:51 Anion Gap 16 mmol/L 11/10/17 05:51 BUN 4 mg/dL (7-17) L 11/10/17 05:51 Creatinine 0.5 mg/dL (0.7-1.2) L 11/10/17 05:51 Estimated GFR > 60 ml/min 11/10/17 05:51 BUN/Creatinine Ratio 8 % 11/10/17 05:51 Glucose 77 mg/dL (65-100) 11/10/17 05:51 POC Glucose 101 (70-105) 11/09/17 03:02 Calcium 8.4 mg/dL (8.4-10.2) 11/10/17 05:51 Urine Color Yellow (Yellow) 11/09/17 03:08 Urine Turbidity Clear (Clear) 11/09/17 03:08 Urine pH 6.0 (5.0-7.0) 11/09/17 03:08 Ur Specific [place] 1.014 (1.003-1.030) 11/09/17 03:08 Urine Protein <15 mg/dl mg/dL (Negative) 11/09/17 03:08 Urine Glucose (UA) Neg mg/dL (Negative) 11/09/17 03:08 Urine Ketones Neg mg/dL (Negative) 11/09/17 03:08 Urine Blood Neg (Negative) 11/09/17 03:08 Urine Nitrite Neg (Negative) 11/09/17 03:08 Ur Reducing Substances Not Reportable 11/09/17 03:08 Urine Bilirubin Neg (Negative) 11/09/17 03:08 Urine Ictotest Not Reportable 11/09/17 03:08 Urine Urobilinogen < 2.0 mg/dL (<2.0) 11/09/17 03:08 Ur Leukocyte Esterase Neg (Negative) 11/09/17 03:08 Urine WBC (Auto) 1.0 /HPF (0.0-6.0) 11/09/17 03:08 Urine RBC (Auto) 2.0 /HPF (0.0-6.0) 11/09/17 03:08 U Epithel Cells (Auto) 1.0 /HPF (0-13.0) 11/09/17 03:08 Urine Mucus Few /HPF 11/09/17 03:08 Urine HCG, Qual Negative (Negative) 11/09/17 03:08 Salicylates < 0.3 mg/dL (2.8-20.0) L 11/09/17 03:00 Urine Opiates Screen Presumptive negative 11/09/17 03:08 Urine Methadone Screen Presumptive negative 11/09/17 03:08 Acetaminophen < 15.0 ug/mL (10.0-30.0) 11/09/17 03:00 Ur Barbiturates Screen Presumptive negative 11/09/17 03:08 Ur Phencyclidine Scrn Presumptive negative 11/09/17 03:08 Ur Amphetamines Screen Presumptive negative 11/09/17 03:08 U Benzodiazepines Scrn Presumptive negative 11/09/17 03:08 Urine Cocaine Screen Presumptive negative 11/09/17 03:08 U Marijuana (THC) Screen Presumptive negative 11/09/17 03:08 Drugs of Abuse Note Disclamer 11/09/17 03:08 Plasma/Serum Alcohol < 0.01 gm% (0-0.07) 11/09/17 03:00
[2017-11-10] MEDS ORDERED: DOXEPIN 50 MG PO SCH (18:00)
[2017-11-10] MEDS ORDERED: NON-FORMULARY (Eszopiclone [Lunesta] 3 MG) PO SCH (18:00)
[2017-11-10] MEDS ORDERED: SINEquan PO SCH ×2 (18:00→21:00)
[2017-11-10] MEDS ORDERED: NON-FORMULARY (Gabapentin [Neurontin] 800 MG) PO SCH (18:00)
[2017-11-10] MEDS ORDERED: APRESOLINE IV PRN (18:45)
[2017-11-10] MEDS: BUSPAR PO SCH ×2 (18:54→19:33)
[2017-11-10 21:01] VITALS: BP 143/91
[2017-11-10] MEDS ORDERED: NON-FORMULARY (Lubiprostone (Nf) 24 MCG) PO SCH (22:00)
[2017-11-10] MEDS ORDERED: BEPOTASTINE BESILATE OU SCH (22:00)
[2017-11-11] MEDS ORDERED: SINEquan PO SCH (18:00)
--- NOTE | 2017-11-14 13:37 | Query-Altered Level of Consc. ---
Baldomero Bruner____Chantal Date:____11/14/17 Spectroscopist/CDS:____Arvindmelodie / Jose Angel Phone#:____[phone] Exercise your independent professional judgment when responding to this query. Questions asked do not imply a particular answer is desired or expected. We greatly appreciate your clarification on this issue. Clinical Documentation States: 47 year old female was admitted on 11/09/17 The discharge summary (Dr. Cornejo) states " 47-year-old woman with a history of hypertension, hyperlipidemia, seizure, bipolar, GERD, chronic pain was brought to the emergency room because she was extremely lethargic. Her at bedside state that she took too much Percocet. Altered mental status likely iatrogenic from medication " Clinical Findings Show: Please provide an appropriate diagnosis clarifying the Etiology and Acuity of this clinical scenario: [X ] Metabolic Encephalopathy [ ] Toxic Encephalopathy [ ] Toxic - Metabolic Encephalopathy [ ] Septic Encephalopathy with Sepsis [ ] Septic Encephalopathy without Sepsis [ ] Acute Hepatic Encephalopathy [ ] Subacute Hepatic Encephalopathy [ ] Encephalopathy [ ] Other: [ ] Unable To Determine [ ]Comment/Explanation: Present on Admission: [X ] Yes (Y) [ ] Clinically undeterminable (W) [ ] No (N) Please also document response in your Progress Notes and/or Discharge Summary and indicate if the condition was present on admission. MTDD
== END 2017-11-10 22:30 | DRG 917 ==
LOC: ED 02:06 → 4A 05:22
PROVIDERS: ADMIT Internal Medicine; ATTEND Internal Medicine
DX: T40.602A Poisoning by unspecified narcotics, intentional self-harm, initial encounter (principal); G93.41 Metabolic encephalopathy; I16.0 Hypertensive urgency; F31.9 Bipolar disorder, unspecified; K21.9 Gastro-esophageal reflux disease without esophagitis; I10 Essential (primary) hypertension; E78.5 Hyperlipidemia, unspecified; Z79.899 Other long term (current) drug therapy; G89.29 Other chronic pain; Z98.51 Tubal ligation status; Z90.49 Acquired absence of other specified parts of digestive tract; Z82.49 Family history of ischemic heart disease and other diseases of the circulatory system; R56.9 Unspecified convulsions; Z90.710 Acquired absence of both cervix and uterus; Y92.89 Other specified places as the place of occurrence of the external cause
CPT/HCPCS: 36415; 70450; 80048; 80307; 80320; 81001; 81025; 82962; 85025; 93005; 93010; 96374; 96376; 99285; G0480; J0360; J1650; J2310; J2405; J7030

== ENCOUNTER 2018-01-24 19:48 | Inpatient (IN) | payer MEDICARE ==
--- NOTE | 2018-01-24 21:02 | Emergency Department Report ---
ED Neuro Deficit HPI - General Chief Complaint: Neuro Symptoms/Deficit Stated Complaint: L SIDE WEAKNESS Time Seen by Provider: 01/24/18 20:28 Source: patient, EMS Mode of arrival: Stretcher Limitations: No Limitations - History of Present Illness Initial Comments: Patient is a 47-year-old female history of hypertension and chronic pain. Patient brought by EMS for evaluation for possible stroke. Patient stated that around 3:30 this afternoon approximately 5-1/2 hours ago she started having left upper and lower extremity weakness and numbness. Patient denied any speech abnormalities or facial droop. She stated that she is having difficulty having a tight grasp on the left hand. Patient denied any headache, neck pain or stiffness. No bowel or bladder incontinence. Patient denied any chest pain or shortness of breath. -: Sudden, This afternoon Location: left arm, left leg Presenting Symptoms: Present: Weak/Paralyzed One Side History of same: No Place: home Associated Symptoms: denies other symptoms - Related Data Home Medications: Home Medications Medication Instructions Recorded Confirmed Last Taken Tizanidine HCl [Zanaflex] 4 mg PO TID PRN 12/14/14 11/09/17 03/07/17 Spironolactone [Aldactone] 25 mg PO DAILY 03/22/15 11/09/17 03/08/17 Ondansetron [Zofran TAB] 4 mg PO Q6HR PRN 04/15/15 11/09/17 03/07/17 Oxycodone HCl/Acetaminophen 1 each PO QID PRN 03/07/17 11/09/17 03/07/17 [Percocet 10/325 mg] Bepotastine Besilate [Bepreve 1.5%] 1 drop OU BID 11/09/17 11/09/17 Unknown DULoxetine [Cymbalta] 60 mg PO QDAY 11/09/17 11/09/17 Unknown Doxepin [SINEquan] 50 mg PO QPM 11/09/17 11/09/17 Unknown Eszopiclone [Lunesta] 3 mg PO QPM 11/09/17 11/09/17 Unknown Gabapentin [Neurontin] 400 mg PO QAM 11/09/17 11/09/17 Unknown Gabapentin [Neurontin] 800 mg PO QPM 11/09/17 11/09/17 Unknown Loperamide [Imodium] 2 mg PO PRN PRN 11/09/17 11/09/17 Unknown Loteprednol Etabonate [Alrex 0.2%] 1 drop OP QID 11/09/17 11/09/17 Unknown Lubiprostone (Nf) [Amitiza (Nf)] 24 mcg PO BID 11/09/17 11/09/17 Unknown Metoprolol [Lopressor TAB] 100 mg PO BID 11/09/17 11/09/17 Unknown Multivitamin with Folic Acid 1 tab PO DAILY 11/09/17 11/09/17 Unknown [Thera Tablet] Pantoprazole [Protonix TAB] 40 mg PO QDAY 11/09/17 11/09/17 Unknown Promethazine [Phenergan TAB] 25 mg PO Q6HR PRN 11/09/17 11/09/17 Unknown Rizatriptan Benzoate [Maxalt] 10 mg PO PRN 11/09/17 11/09/17 Unknown Sulfacetamide/Prednisolone 5 ml OP TID 11/09/17 11/09/17 Unknown [Blephamide Eye Drops] busPIRone [Buspar] 15 mg PO TID 11/09/17 11/09/17 Unknown Previous Rx's Medication Instructions Recorded Last Taken Type Docusate Sodium [Colace ORAL LIQ] 100 mg PO TID PRN #20 oralsyr 10/20/17 Unknown Rx Allergies/Adverse Reactions: Allergies Allergy/AdvReac Type Severity Reaction Status Date / Time No Known Allergies Allergy Verified 12/14/14 06:02 ED Review of Systems ROS: Stated complaint: L SIDE WEAKNESS Other details as noted in HPI Comment: All other systems reviewed and negative Constitutional: denies: chills, fever ENT: denies: throat pain Respiratory: denies: cough, orthopnea, shortness of breath, SOB with exertion, SOB at rest Cardiovascular: denies: chest pain, palpitations, dyspnea on exertion, orthopnea Gastrointestinal: nausea. denies: abdominal pain, vomiting, diarrhea, constipation, hematemesis, melena, hematochezia Genitourinary: denies: urgency, dysuria Musculoskeletal: back pain (chronic) Skin: denies: rash, lesions Neurological: weakness, numbness. denies: headache, paresthesias, confusion, abnormal gait, vertigo ED Past Medical Hx - Past Medical History Hx Hypertension: Yes Hx Heart Attack/AMI: No (DENIES) Hx Congestive Heart Failure: No Hx Diabetes: No Hx GERD: Yes Hx Arthritis: Yes Hx Seizures: Yes (2014, LAST AND ONLY EPISODE, THEY TOOK ME OFF MEDICINE) Hx Psychiatric Treatment: Yes (bipolar disorder) Hx Asthma: No Hx COPD: No Hx HIV: No Additional medical history: Chronic pain - Surgical History Hx Cholecystectomy: Yes Additional Surgical History: Tubal ligation, gastric bypass, left shoulder surgery - Social History Smoking Status: Never Smoker Substance Use Type: None - Medications Home Medications: Home Medications Medication Instructions Recorded Confirmed Last Taken Type Tizanidine HCl [Zanaflex] 4 mg PO TID PRN 12/14/14 11/09/17 03/07/17 History Spironolactone [Aldactone] 25 mg PO DAILY 03/22/15 11/09/17 03/08/17 History Ondansetron [Zofran TAB] 4 mg PO Q6HR PRN 04/15/15 11/09/17 03/07/17 History Oxycodone HCl/Acetaminophen 1 each PO QID PRN 03/07/17 11/09/17 03/07/17 History [Percocet 10/325 mg] Docusate Sodium [Colace ORAL LIQ] 100 mg PO TID PRN #20 oralsyr 10/20/17 Unknown Rx Bepotastine Besilate [Bepreve 1.5%] 1 drop OU BID 11/09/17 11/09/17 Unknown History DULoxetine [Cymbalta] 60 mg PO QDAY 11/09/17 11/09/17 Unknown History Doxepin [SINEquan] 50 mg PO QPM 11/09/17 11/09/17 Unknown History Eszopiclone [Lunesta] 3 mg PO QPM 11/09/17 11/09/17 Unknown History Gabapentin [Neurontin] 400 mg PO QAM 11/09/17 11/09/17 Unknown History Gabapentin [Neurontin] 800 mg PO QPM 11/09/17 11/09/17 Unknown History Loperamide [Imodium] 2 mg PO PRN PRN 11/09/17 11/09/17 Unknown History Loteprednol Etabonate [Alrex 0.2%] 1 drop OP QID 11/09/17 11/09/17 Unknown History Lubiprostone (Nf) [Amitiza (Nf)] 24 mcg PO BID 11/09/17 11/09/17 Unknown History Metoprolol [Lopressor TAB] 100 mg PO BID 11/09/17 11/09/17 Unknown History Multivitamin with Folic Acid 1 tab PO DAILY 11/09/17 11/09/17 Unknown History [Thera Tablet] Pantoprazole [Protonix TAB] 40 mg PO QDAY 11/09/17 11/09/17 Unknown History Promethazine [Phenergan TAB] 25 mg PO Q6HR PRN 11/09/17 11/09/17 Unknown History Rizatriptan Benzoate [Maxalt] 10 mg PO PRN 11/09/17 11/09/17 Unknown History Sulfacetamide/Prednisolone 5 ml OP TID 11/09/17 11/09/17 Unknown History [Blephamide Eye Drops] busPIRone [Buspar] 15 mg PO TID 11/09/17 11/09/17 Unknown History ED Neuro Physical Exam - General Limitations: No Limitations General appearance: alert, in no apparent distress Suspected Stroke: Yes - Head Head exam: Present: atraumatic, normocephalic, normal inspection - Eye Eye exam: Present: normal appearance, PERRL - ENT ENT exam: Present: normal exam, normal orophraynx, mucous membranes moist - Neck Neck exam: Present: normal inspection, full ROM. Absent: tenderness, meningismus, lymphadenopathy, thyromegaly - Respiratory Respiratory exam: Present: normal lung sounds bilaterally. Absent: respiratory distress, wheezes, rales, rhonchi, stridor, chest wall tenderness, accessory muscle use, decreased breath sounds, prolonged expiratory - Cardiovascular Cardiovascular Exam: Present: regular rate, normal rhythm, normal heart sounds - GI/Abdominal GI/Abdominal exam: Present: soft, normal bowel sounds. Absent: distended, tenderness, guarding, rebound, rigid, organomegaly, mass, bruit, pulsatile mass , hernia - Extremities Exam Extremities exam: Present: normal inspection, full ROM, tenderness - Neurological Exam Neurological exam: Present: alert, oriented X3, CN II-XII intact - NIHSS Assessment Interval: Baseline 1a. Level of Consciousness: alert 1b. LOC Questions: answers correctly 1c. LOC Commands: performs tasks correctly 2. Best Gaze: normal 3. Visual: no visual loss 4. Facial Palsy: normal symmetrical movement 5b. Motor Arm Right: no drift 5a. Motor Arm Left: drift 6a. Motor Leg Left: drift 6b. Motor Leg Right: no drift 7. Limb Ataxia: absent 8. Sensory: normal 9. Best Language: no aphasia 10. Dysarthria: normal 11. Extinction/Inattention: no abnormality Total Score: 2 Stroke Severity: Minor Stroke - Psychiatric Psychiatric exam: Present: normal affect, normal mood. Absent: depressed, agitated, anxious, flat affect, manic, homicidal ideation, suicidal ideation - Skin Skin exam: Present: warm, intact, normal color ED Course Vital Signs 01/24/18 20:46 Temperature 98.4 F Pulse Rate 76 Respiratory 16 Rate O2 Sat by Pulse 100 Oximetry - Lab Data Result diagrams: 01/24/18 20:57 01/24/18 22:12 Lab Results 01/24/18 01/24/18 01/24/18 Range/Units 20:57 20:57 20:57 WBC 4.9 (4.5-11.0) K/mm3 RBC 4.49 (3.65-5.03) M/mm3 Hgb 13.5 (10.1-14.3) gm/dl Hct 41.8 (30.3-42.9) % MCV 93 (79-97) fl MCH 30 (28-32) pg MCHC 32 (30-34) % RDW 14.4 (13.2-15.2) % Plt Count 281 (140-440) K/mm3 Lymph % (Auto) 21.8 (13.4-35.0) % [place] % (Auto) 7.5 H (0.0-7.3) % Eos % (Auto) 3.9 (0.0-4.3) % Baso % (Auto) 2.5 H (0.0-1.8) % Lymph # 1.1 L (1.2-5.4) K/mm3 [place] # 0.4 (0.0-0.8) K/mm3 Eos # 0.2 (0.0-0.4) K/mm3 Baso # 0.1 (0.0-0.1) K/mm3 Seg Neutrophils % 64.3 (40.0-70.0) % Seg Neutrophils # 3.1 (1.8-7.7) K/mm3 PT 13.5 (12.2-14.9) Sec. INR 0.98 (0.87-1.13) APTT 30.7 (24.2-36.6) Sec. Thrombin Time 15.4 (15.1-19.6) Sec. Sodium (137-145) mmol/L Potassium (3.6-5.0) mmol/L Chloride (98-107) mmol/L Carbon Dioxide (22-30) mmol/L Anion Gap mmol/L BUN (7-17) mg/dL Creatinine (0.7-1.2) mg/dL Estimated GFR ml/min BUN/Creatinine Ratio % Glucose (65-100) mg/dL Calcium (8.4-10.2) mg/dL Total Bilirubin (0.1-1.2) mg/dL AST (5-40) units/L ALT (7-56) units/L Alkaline Phosphatase (35-129) units/L Total Creatine Kinase 1515 H (30-135) units/L CK-MB (CK-2) 8.9 H (0.0-4.0) ng/mL CK-MB (CK-2) Rel Index 0.5 (0-4) Troponin T < 0.010 (0.00-0.029) ng/mL Total Protein (6.3-8.2) g/dL Albumin (3.9-5) g/dL Albumin/Globulin Ratio % 01/24/ Range/Units 22:12 WBC (4.5-11.0) K/mm3 RBC (3.65-5.03) M/mm3 Hgb (10.1-14.3) gm/dl Hct (30.3-42.9) % MCV (79-97) fl MCH (28-32) pg MCHC (30-34) % RDW (13.2-15.2) % Plt Count (140-440) K/mm3 Lymph % (Auto) (13.4-35.0) % [place] % (Auto) (0.0-7.3) % Eos % (Auto) (0.0-4.3) % Baso % (Auto) (0.0-1.8) % Lymph # (1.2-5.4) K/mm3 [place] # (0.0-0.8) K/mm3 Eos # (0.0-0.4) K/mm3 Baso # (0.0-0.1) K/mm3 Seg Neutrophils % (40.0-70.0) % Seg Neutrophils # (1.8-7.7) K/mm3 PT (12.2-14.9) Sec. INR (0.87-1.13) APTT (24.2-36.6) Sec. Thrombin Time (15.1-19.6) Sec. Sodium 137 (137-145) mmol/L Potassium 5.2 H (3.6-5.0) mmol/L Chloride 100.7 (98-107) mmol/L Carbon Dioxide 23 (22-30) mmol/L Anion Gap 19 mmol/L BUN 11 (7-17) mg/dL Creatinine 0.8 (0.7-1.2) mg/dL Estimated GFR > 60 ml/min BUN/Creatinine Ratio 14 % Glucose 79 (65-100) mg/dL Calcium 9.1 (8.4-10.2) mg/dL Total Bilirubin 0.60 (0.1-1.2) mg/dL AST 237 H (5-40) units/L ALT 60 H (7-56) units/L Alkaline Phosphatase 294 H (35-129) units/L Total Creatine Kinase (30-135) units/L CK-MB (CK-2) (0.0-4.0) ng/mL CK-MB (CK-2) Rel Index (0-4) Troponin T (0.00-0.029) ng/mL Total Protein 6.6 (6.3-8.2) g/dL Albumin 3.8 L (3.9-5) g/dL Albumin/Globulin Ratio 1.4 % - EKG Data -: EKG Interpreted by Ma EKG shows normal: sinus rhythm Rate: bradycardia Interpretation: no acute changes - Radiology Data Radiology results: report reviewed Referring Physician: BERNARDO DAVILA Patient Name: NIRMAL CARROLL Date of : 1970 Sex: Female Report Date: 2018-01-24 Report Status: Finalized Findings [facility] [address] [place] [address] Cat Scan Report Signed Patient: NIRMAL CARROLL MR#: [id number] : 1970 Acct:[id number] Age/Sex: 47 / F ADM Date: 01/24/18 Loc: ED Attending Dr: Ordering Physician: BERNARDO DAVILA Date of Service: 01/24/18 Procedure(s): CT head/brain wo con Accession Number(s): [id number] cc: BERNARDO DAVILA FINAL REPORT PROCEDURE: CT HEAD/BRAIN WO CON TECHNIQUE: Computerized tomography of the head was performed without contrast material. HISTORY: STROKE symptoms COMPARISON: 11/09/2017 FINDINGS: There are stable white matter low attenuation areas in the centrum semiovale bilaterally, which may be related to chronic microvascular ischemic changes. There is no CT evidence of intracranial mass, hemorrhage, acute territorial infarction, or hydrocephalus. The intracranial arteries are symmetric in density. Calvarium is intact. Visualized paranasal sinuses and mastoids are aerated. IMPRESSION: No CT evidence of acute abnormality Transcribed By: [facility] Dictated By: HELGA DE LUNA M.D. Electronically Authenticated By: HELGA DE LUNA M.D. Signed Date/Time: 01/24/182114 DD/ 14 TD/TT: 01/24/182114 - Medical Decision Making Patient presented to the ER 5 hours after the onset of the symptoms, so patient is not a TPA candidate. Discussed with Dr. Maria Teresa Carroll, I presented the patient to her she agreed to admit the patient to her service. Critical care attestation.: If time is entered above; I have spent that time in minutes in the direct care of this critically ill patient, excluding procedure time. ED Disposition Clinical Impression: Stroke, Rhabdomyolysis, Elevated liver enzymes Disposition: OP ADMIT IP TO THIS HOSP Is pt being admited?: Yes Condition: Stable Referrals: BART CALDERON MD [Primary Care Provider] - 3-5 Days
[2018-01-24] MEDS ORDERED: NACL 0.9% 1000 ML 1,000 ML IV ONE (21:04)
[2018-01-24] MEDS ORDERED: ZOFRAN IV ONE (21:04)
[2018-01-24 21:13] LABS: Basophils # (Auto) 0.1 K/mm3 (0.0-0.1); Basophils % (Auto) 2.5 % (0.0-1.8); Eosinophils # (Auto) 0.2 K/mm3 (0.0-0.4); Eosinophils % (Auto) 3.9 % (0.0-4.3); Hematocrit 41.8 % (30.3-42.9); Hemoglobin 13.5 gm/dl (10.1-14.3); Lymphocytes # (Auto) 1.1 K/mm3 (1.2-5.4); Lymphocytes % (Auto) 21.8 % (13.4-35.0); Mean Corpuscular HGB Conc 32 % (30-34); Mean Corpuscular Hemoglobin 30 pg (28-32); Mean Corpuscular Volume 93 fl (79-97); Monocytes # (Auto) 0.4 K/mm3 (0.0-0.8); Monocytes % (Auto) 7.5 % (0.0-7.3); Platelet Count 281 K/mm3 (140-440); Red Blood Count 4.49 M/mm3 (3.65-5.03); Red Cell Distribution Width 14.4 % (13.2-15.2)
--- NOTE | 2018-01-24 21:20 | Cat Scan Report ---
FINAL REPORT PROCEDURE: CT HEAD/BRAIN WO CON TECHNIQUE: Computerized tomography of the head was performed without contrast material. HISTORY: STROKE symptoms COMPARISON: 11/09/2017 FINDINGS: There are stable white matter low attenuation areas in the centrum semiovale bilaterally, which may be related to chronic microvascular ischemic changes. There is no CT evidence of intracranial mass, hemorrhage, acute territorial infarction, or hydrocephalus. The intracranial arteries are symmetric in density. Calvarium is intact. Visualized paranasal sinuses and mastoids are aerated. IMPRESSION: No CT evidence of acute abnormality
[2018-01-24 21:23] LABS: Creatine Kinase MB 8.9 ng/mL (0.0-4.0); INR 0.98 (0.87-1.13); Partial Thromboplastin Time 30.7 Sec. (24.2-36.6); Thrombin Time 15.4 Sec. (15.1-19.6)
[2018-01-24 22:26] LABS: Alanine Aminotransferase 60 units/L (7-56); Albumin 3.8 g/dL (3.9-5); BUN/Creatinine Ratio 14; Blood Urea Nitrogen 11 mg/dL (7-17); Calcium 9.1 mg/dL (8.4-10.2); Hemolysis Index 1
[2018-01-25] MEDS ORDERED: TORADOL IV ONE (01:50)
[2018-01-25] MEDS ORDERED: TYLENOL PO PRN (01:51)
[2018-01-25] MEDS ORDERED: DULCOLAX PR PRN (01:51)
[2018-01-25] MEDS ORDERED: MILK OF MAGNESIA PO PRN (01:51)
[2018-01-25] MEDS ORDERED: ZOFRAN IV PRN (01:51)
[2018-01-25] MEDS ORDERED: SODIUM CHLORIDE FLUSH SYRINGE 10 ML IV PRN (01:53)
--- NOTE | 2018-01-25 01:55 | History and Physical Report ---
History of Present Illness Date of examination: 01/25/18 History of present illness: 47-year-old woman with a history of hypertension, hyperlipidemia, seizure, anxiety, depression, GERD, chronic pain was brought to the emergency room because of left upper extremity weakness and numbness Review Of Systems: Constitutional: no weight loss Ears, eyes, nose, mouth and throat: no nasal congestion, no nasal discharge, no sinus pressure, blurry vision, diplopia Neck: No neck pain or rigidity. Cardiovascular: no chest pain, orthopnea, palpitations Respiratory: No shortness of breath, cough Gastrointestinal: no abdominal pain, hematochezia Genitourinary : no dysuria, frequency , hematuria Musculoskeletal: no muscle ache Integumentary: no rash, no pruritis Neurological:+ parathesias, focal weakness Endocrine: no cold or heat intolerance, no polyuria or polydipsia Hematologic/Lymphatic: no easy bruising, no easy bleeding, no gland swelling Allergic/Immunologic: no urticaria, no angioedema. PAST MEDICAL HISTORY:hypertension, hyperlipidemia, seizure, anxiety, depression , GERD, chronic pain PAST SURGICAL HISTORY: Hysterectomy, hernia repair, gastric bypass, cholecystectomy, shoulder surgery, tubal ligation FAMILY HISTORY: Hypertension SOCIAL HISTORY: Denies alcohol, tobacco, drugs Medications and Allergies Allergies Allergy/AdvReac Type Severity Reaction Status Date / Time No Known Allergies Allergy Verified 12/14/14 06:02 Home Medications Medication Instructions Recorded Confirmed Last Taken Type Tizanidine HCl [Zanaflex] 4 mg PO TID PRN 12/14/14 11/09/17 03/07/17 History Spironolactone [Aldactone] 25 mg PO DAILY 03/22/15 11/09/17 03/08/17 History Ondansetron [Zofran TAB] 4 mg PO Q6HR PRN 04/15/15 11/09/17 03/07/17 History Oxycodone HCl/Acetaminophen 1 each PO QID PRN 03/07/17 11/09/17 03/07/17 History [Percocet 10/325 mg] Docusate Sodium [Colace ORAL LIQ] 100 mg PO TID PRN #20 oralsyr 10/20/17 Unknown Rx Bepotastine Besilate [Bepreve 1.5%] 1 drop OU BID 11/09/17 11/09/17 Unknown History DULoxetine [Cymbalta] 60 mg PO QDAY 11/09/17 11/09/17 Unknown History Doxepin [SINEquan] 50 mg PO QPM 11/09/17 11/09/17 Unknown History Eszopiclone [Lunesta] 3 mg PO QPM 11/09/17 11/09/17 Unknown History Gabapentin [Neurontin] 400 mg PO QAM 11/09/17 11/09/17 Unknown History Gabapentin [Neurontin] 800 mg PO QPM 11/09/17 11/09/17 Unknown History Loperamide [Imodium] 2 mg PO PRN PRN 11/09/17 11/09/17 Unknown History Loteprednol Etabonate [Alrex 0.2%] 1 drop OP QID 11/09/17 11/09/17 Unknown History Lubiprostone (Nf) [Amitiza (Nf)] 24 mcg PO BID 11/09/17 11/09/17 Unknown History Metoprolol [Lopressor TAB] 100 mg PO BID 11/09/17 11/09/17 Unknown History Multivitamin with Folic Acid 1 tab PO DAILY 11/09/17 11/09/17 Unknown History [Thera Tablet] Pantoprazole [Protonix TAB] 40 mg PO QDAY 11/09/17 11/09/17 Unknown History Promethazine [Phenergan TAB] 25 mg PO Q6HR PRN 11/09/17 11/09/17 Unknown History Rizatriptan Benzoate [Maxalt] 10 mg PO PRN 11/09/17 11/09/17 Unknown History Sulfacetamide/Prednisolone 5 ml OP TID 11/09/17 11/09/17 Unknown History [Blephamide Eye Drops] busPIRone [Buspar] 15 mg PO TID 11/09/17 11/09/17 Unknown History Active Meds: Active Medications Ketorolac Tromethamine (Toradol) 30 mg IV ONCE ONE Stop: 01/25/18 01:51 Exam - Physical Exam Narrative exam: Gen. appearance: Patient lying in bed, no apparent distress HEENT: Normocephalic, atraumatic, pupils equally round and reactive to light, extraocular movement intact, and no sclericterus,. No JVD or thyromegaly or nodule,neck supple, no carotid bruit ,mucous membranes moist, no exudate or erythema Heart: S1, S2, regular rate and rhythm Lungs: Clear to auscultation bilaterally, breathing comfortable Abdomen: Positive bowel sounds, nontender, nondistended, no organomegaly Extremity: No edema, cyanosis, clubbing Skin: No rash, nodules, warm, dry Neuro: Oriented 3, cranial nerves II-12 intact, speech is fluent, motor- poor effort and decreased sensation on LUE - Constitutional Vitals: Temp Pulse Resp BP Pulse Ox 98 F 60 16 105/77 100 01/24/18 23:41 01/24/18 23:41 01/24/18 23:41 01/24/18 23:41 01/24/18 23:41 Results - Labs CBC & Chem 7: 01/24/18 20:57 01/24/18 22:12 Labs: Abnormal lab results 01/24/18 01/24/18 01/24/18 Range/Units 20:57 20:57 22:12 [place] % (Auto) 7.5 H (0.0-7.3) % Baso % (Auto) 2.5 H (0.0-1.8) % Lymph # 1.1 L (1.2-5.4) K/mm3 Potassium 5.2 H (3.6-5.0) mmol/L AST 237 H (5-40) units/L ALT 60 H (7-56) units/L Alkaline Phosphatase 294 H (35-129) units/L Total Creatine Kinase 1515 H (30-135) units/L CK-MB (CK-2) 8.9 H (0.0-4.0) ng/mL Albumin 3.8 L (3.9-5) g/dL - Imaging and Cardiology EKG: image reviewed CT Scan - head: report reviewed Assessment and Plan Assessment Left upper extremity weakness and paresthesia Rhabdomyolysis hypertension hyperlipidemia seizure Anxiety Depression GERD chronic pain Plan Admit to medicine Obtain MRI, carotid Doppler, echo ZDo neuro checks, consult neurology, PT/ OT Start IV fluid, monitor CK levels DVT prophalaxis
[2018-01-25] MEDS ORDERED: COLACE PO PRN (03:01)
[2018-01-25] MEDS ORDERED: ZANAFLEX PO PRN (03:01)
[2018-01-25] MEDS: NACL 0.9% 1000 ML 1,000 ML IV SCH (03:39)
[2018-01-25] MEDS: BUSPAR PO SCH ×3 (08:00→21:27)
--- NOTE | 2018-01-25 09:54 | History and Physical Report ---
History of Present Illness Date of examination: 01/25/18 Date of admission: 01/25/18 01:52 Chief complaint: FOCUSED NEUROLOGY CONSULT NOTE: CC: 47 AA F with headache and dysesthesias over her left face, arm, leg with clumbsiness of left arm x one day HPI: Patient has an hx ofHTN, seizure disorder on Gabapentin no recent Sz, hperlipidemia, disability for chronic anxiety + depression + chronic neck low back +abdominal pain x years (followed by a Dr Witt, Neurologist and net application support specialist. She also has an hx of migraine x years, is followed by her neurologist for this and is on a prophylact regimen of Topamax 100mg am + 300mgpm, Maxalt tabs (a tryptan) which she takes 2 to 3 x per week, and Fioricet. On this regimen she has 2 - 3 migraines a week each lasting, with her meds, one hour. HAs are throbbing and pounding and are assoc with some nausea no vomiting. Current stressors = financial - paying bills, etc. Yesterday afternoon while in the kitchen cooking, she noted the onset of tingling dysesthesias in the left face, then in the left shoulder which then migrated over several minutes down to the left hand, and thence to the left foot and up the left leg to the hip. The arm then became heavy and she had difficulty lifting pots and spoons. The left leg seemed to drag somewhat. She did not fall. She had a left sided throbbing headache as well. She lay down. Had some nausea no vomiting. Sx did not resolve. to ED. Never had these unilateral sx face arm leg before. Mother and one brother have migraine. ROS: No dizziness vertigo fever sweats chills double vision, difficulty with language or speech. No right sided sx. No LOC. An 11 point ROS is negative. MEDS/ALLERGIES: see chart SH/FH: not re-reviewed. Darío, , is in room with patient. No children. PE: VS as recorded Neck; supple, no bruits HEENT: nl LUNGS: clear to A COR: no m, rubs ABD: soft, BS nl EXTREM: no edema, no evidence trauma NEURO EXAM: MS: sl sleepy but becomes more alert. Has headache. Oriented x 3. Speech fluent, clear, adn without errors. follows commands well CN: II - 12 nl save for dysesthetic sense experienced on touching left face. no motor weakness of face. MOTOR: 4+/5 strenght left arm prox and distally, 5/5 in left leg prox and distally, R side nl UE and LE CEREB: clumbsy fnf on left side (due to mild motor weakness) DTRs: 1+ UE and LE prox and dist, both great toes downgoing to plantar stim GAIN: not tested due to fall risk DX IMP: 1. Migraine Variant with left sided sensory march, dysesthias, and left arm clumbsiness. 2. Migraine with aura, with pos fam hx migraine 3. Chronic anxiety and depression 4. Chronic pain in neck, low back and abdomen (adhesions secondary to mult abd procedures) 5. Rhabdomyolysis, mild, with CPK 1515 on admission secondary to lying in one position for a long time, other injury....? some story missing here 6. Seizure disorder on Gabapentin 7. Other dxs as above RECC: 1. Agree with your work up plan: MRI/MRA, echo, c-doppler. A small migrainous infarct is possible in the right thalamus or right parietal lobe ( sensory centers) is possible and may show up in DWI images on head MRI. 2. Patient says she gets Dilaudid or Morphine for her chromic pain when hospitalized for this...just FYI...would not use tryptan in setting of Migraine Variant with her current Sx. 3. Would use Ativan, low dose, for mild sedation (RX anxiety) and as Rx for Nausea 4. For Pain: could try Depakote 250 mg BID + IV Solumedrol 125mg in 500 cc NS over one hour daily + Toradol 30 mg IV repeat x 1 if headache not better in one hour. 5. Keep her on her OPD prophylactic regiment of Topamax 100mg am + 300 mg pm. Continue her regimen of Gabapentin (for pain + for seizures) 6. Go from there. Syed Barnes MD Medications and Allergies Allergies Allergy/AdvReac Type Severity Reaction Status Date / Time No Known Allergies Allergy Verified 12/14/14 06:02 Home Medications Medication Instructions Recorded Confirmed Last Taken Type Tizanidine HCl [Zanaflex] 4 mg PO TID PRN 0111/09/17 03/07/17 History Spironolactone [Aldactone] 25 mg PO DAILY 03/22/15 11/09/17 03/08/17 History Ondansetron [Zofran TAB] 4 mg PO Q6HR PRN 04/15/15 11/09/17 03/07/17 History Oxycodone HCl/Acetaminophen 1 each PO QID PRN 03/07/17 11/09/17 03/07/17 History [Percocet 10/325 mg] Docusate Sodium [Colace ORAL LIQ] 100 mg PO TID PRN #20 oralsyr 10/20/17 Unknown Rx Bepotastine Besilate [Bepreve 1.5%] 1 drop OU BID 11/09/17 11/09/17 Unknown History DULoxetine [Cymbalta] 60 mg PO QDAY 11/09/17 11/09/17 Unknown History Doxepin [SINEquan] 50 mg PO QPM 11/09/17 11/09/17 Unknown History Eszopiclone [Lunesta] 3 mg PO QPM 11/09/17 11/09/17 Unknown History Gabapentin [Neurontin] 400 mg PO QAM 11/09/17 11/09/17 Unknown History Gabapentin [Neurontin] 800 mg PO QPM 11/09/17 11/09/17 Unknown History Loperamide [Imodium] 2 mg PO PRN PRN 11/09/17 11/09/17 Unknown History Loteprednol Etabonate [Alrex 0.2%] 1 drop OP QID 11/09/17 11/09/17 Unknown History Lubiprostone (Nf) [Amitiza (Nf)] 24 mcg PO BID 11/09/17 11/09/17 Unknown History Metoprolol [Lopressor TAB] 100 mg PO BID 11/09/17 11/09/17 Unknown History Multivitamin with Folic Acid 1 tab PO DAILY 11/09/17 11/09/17 Unknown History [Thera Tablet] Pantoprazole [Protonix TAB] 40 mg PO QDAY 11/09/17 11/09/17 Unknown History Promethazine [Phenergan TAB] 25 mg PO Q6HR PRN 11/09/17 11/09/17 Unknown History Rizatriptan Benzoate [Maxalt] 10 mg PO PRN 11/09/17 11/09/17 Unknown History Sulfacetamide/Prednisolone 5 ml OP TID 11/09/17 11/09/17 Unknown History [Blephamide Eye Drops] busPIRone [Buspar] 15 mg PO TID 11/09/17 11/09/17 Unknown History Active Meds: Active Medications Acetaminophen (Tylenol) 650 mg PO Q4H PRN PRN Reason: Pain MILD(1-3)/Fever >100.5/REGALADO Bisacodyl (Dulcolax) 10 mg ND QDAY PRN PRN Reason: Constipation unrelieved by MOM Buspirone HCl (Buspar) 15 mg PO TID PATITO Docusate Sodium (Colace) 100 mg PO TID PRN PRN Reason: Constipation Doxepin HCl (Sinequan) 50 mg PO QPM [facility] Duloxetine HCl (Cymbalta) 60 mg PO QDAY [facility] Enoxaparin Sodium (Lovenox) 40 mg SUB-Q QDAY [facility] Gabapentin (Neurontin) 400 mg PO QAM PATITO Gabapentin (Neurontin) 800 mg PO QPM [facility] Sodium Chloride (Nacl 0.9% 1000 Ml) 1,000 mls @ 150 mls/hr IV DIRECT PATITO Last Admin: 01/25/18 03:39 Dose: 150 mls/hr Magnesium Hydroxide (Milk Of Magnesia) 30 ml PO Q4H PRN PRN Reason: Constipation Metoprolol Tartrate (Lopressor) 100 mg PO BID [facility] Miscellaneous Medication (Lubiprostone (Nf)) 24 mcg PO BID [facility] Multivitamins (Theragran Tab) 1 each PO DAILY [facility] Ondansetron HCl (Zofran) 4 mg IV Q8H PRN PRN Reason: N/V unrelieved by Reglan Pantoprazole Sodium (Protonix) 40 mg PO QDAY [facility] Sodium Chloride (Sodium Chloride Flush Syringe 10 Ml) 10 ml IV PRN PRN PRN Reason: LINE FLUSH Tizanidine HCl (Zanaflex) 4 mg PO TID PRN PRN Reason: Muscle Spasm Physical Examination - Vital Signs Vital Signs: Vital Signs Temp Pulse Resp Pulse Ox 98.4 F 76 16 100 01/24/18 20:46 01/24/18 20:46 01/24/18 20:46 01/24/18 20:46 Results - Laboratory Findings CBC and BMP: 01/24/18 20:57 01/24/18 22:12 Abnormal Lab Findings: Abnormal Labs 01/24/18 01/24/18 01/24/18 20:57 20:57 22:12 Hinds % (Auto) 7.5 H Baso % (Auto) 2.5 H Lymph # 1.1 L Potassium 5.2 H POC Glucose AST 237 H ALT 60 H Alkaline Phosphatase 294 H Total Creatine Kinase 1515 H CK-MB (CK-2) 8.9 H Albumin 3.8 L 01/25/18 01/25/18 01:08 07:03 Hinds % (Auto) Baso % (Auto) Lymph # Potassium POC Glucose 48 L AST ALT Alkaline Phosphatase Total Creatine Kinase 1023 H CK-MB (CK-2) Albumin
[2018-01-25] MEDS: LOPRESSOR PO SCH ×2 (10:00→10:15)
[2018-01-25] MEDS ORDERED: NON-FORMULARY (Lubiprostone (Nf) 24 MCG) PO SCH (10:00)
[2018-01-25] MEDS: CYMBALTA PO SCH ×2 (10:15→16:42)
[2018-01-25] MEDS: PROTONIX PO SCH ×2 (10:15→16:43)
[2018-01-25] MEDS: NEURONTIN PO SCH ×2 (10:15→16:43)
[2018-01-25] MEDS: LOVENOX SUB-Q SCH ×2 (10:15→16:42)
[2018-01-25] MEDS: THERAGRAN Tab PO SCH ×2 (10:16→16:43)
[2018-01-25 10:17] LABS: Creatine Kinase MB 4.4 ng/mL (0.0-4.0)
--- NOTE | 2018-01-25 12:44 | Magnetic Resonance Report ---
MRI BRAIN WITHOUT CONTRAST INDICATION: Stroke. COMPARISON: Head CT from last night. FINDINGS: Noncontrast multiplanar and multisequence MRI of the brain demonstrates normal ventricles without acute infarct, hemorrhage, mass effect or midline shift. Symmetric sulci, somewhat prominent bifrontal and along the vertex, though may overall be considered age-appropriate. No abnormal extraaxial masses or fluid collections. Mild periventricular and numerous white matter FLAIR and T2 weighted hyperintensities, largest posterior frontal-parietal white matter measuring up to approximately 1.4 x 0.7 cm on the left, axial series 7, image 17. Normal major intracranial vascular flow voids. Normal posterior fossa with preserved basilar cisterns and symmetric seventh and eighth nerve complexes. Normal eye globes. Clear aerated paranasal sinuses and mastoid air cells. Normal midline structures without evidence of Chiari malformation. CONCLUSION: No acute intracranial MRI abnormality with mild atrophy and few other findings, as above. Thank you for the opportunity to participate in this patient's care.
[2018-01-25] MEDS ORDERED: MORPHINE IV PRN (14:03)
--- NOTE | 2018-01-25 14:04 | Event Note ---
Date: 01/25/18 Patient 47-year-old with a history of seizures migraine disorder hyperlipidemia chronic anxiety depression chronic pain presents with headache and left facial numbness left arm pain has resolved now. Patient currently being worked up with MRI echocardiogram. Patient migraines being treated with Depakote and Topamax and gabapentin. Most likely etiology is migraine. Seem to be resolved now workup negative will discharge in a.m.
[2018-01-25] MEDS: MORPHINE IV PRN ×2 (16:40→21:28)
[2018-01-25] MEDS ORDERED: SINEquan PO SCH (18:00)
[2018-01-25] MEDS ORDERED: NEURONTIN PO SCH (18:00)
[2018-01-26] MEDS: NACL 0.9% 1000 ML 1,000 ML IV SCH ×2 (00:18→06:30)
[2018-01-26] MEDS: MORPHINE IV PRN ×2 (01:33→06:30)
[2018-01-26] MEDS: LOPRESSOR PO SCH ×2 (01:33→10:48)
[2018-01-26 07:34] LABS: Basophils % (Auto) 0.3 % (0.0-1.8); Eosinophils % (Auto) 0.4 % (0.0-4.3); Hematocrit 40.8 % (30.3-42.9); Hemoglobin 13.4 gm/dl (10.1-14.3); Lymphocytes # (Auto) 1.8 K/mm3 (1.2-5.4); Lymphocytes % (Auto) 18.7 % (13.4-35.0); Mean Corpuscular HGB Conc 33 % (30-34); Mean Corpuscular Hemoglobin 30 pg (28-32); Mean Corpuscular Volume 92 fl (79-97); Monocytes # (Auto) 0.8 K/mm3 (0.0-0.8); Monocytes % (Auto) 7.9 % (0.0-7.3); Platelet Count 246 K/mm3 (140-440); Red Blood Count 4.45 M/mm3 (3.65-5.03); Red Cell Distribution Width 14.4 % (13.2-15.2)
[2018-01-26 07:53] LABS: BUN/Creatinine Ratio 12; Blood Urea Nitrogen 6 mg/dL (7-17); Calcium 8.2 mg/dL (8.4-10.2); Chol/HDL Ratio 2.32 %; HDL Cholesterol 65 mg/dL (40-59); Hemolysis Index 53; LDL Cholesterol,Direct 75 mg/dL (50-130)
[2018-01-26] MEDS: THERAGRAN Tab PO SCH (10:46)
[2018-01-26] MEDS: NEURONTIN PO SCH (10:46)
[2018-01-26] MEDS: CYMBALTA PO SCH (10:46)
[2018-01-26] MEDS: PROTONIX PO SCH (10:47)
[2018-01-26] MEDS: BUSPAR PO SCH ×2 (10:47→14:00)
[2018-01-26] MEDS: LOVENOX SUB-Q SCH ×2 (10:47→10:50)
[2018-01-26 10:50] VITALS: BP 156/94
[2018-01-26] MEDS ORDERED: PERCOCET 5/325 PO PRN (11:00)
--- NOTE | 2018-01-26 13:53 | Discharge Summary ---
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 Primary care physician: BART CALDERON Hospitalization Condition: Stable Disposition: DC-30 STILL A PATIENT - Discharge Diagnoses (1) Complicated migraine Status: Acute (2) Rhabdomyolysis Status: Acute Core Measure Documentation - Palliative Care Palliative Care/ Comfort Measures: Not Applicable - Core Measures Any of the following diagnoses?: none Exam - Constitutional Vitals: Temp Pulse Resp BP Pulse Ox 98.4 F 78 20 156/94 98 01/26/18 07:37 01/26/18 10:48 01/26/18 10:45 01/26/18 10:48 01/26/18 07:37 Plan Activity: no restrictions Diet: low fat, low cholesterol, low salt Additional Instructions: 1.Follow up with PCP in 1 week. Follow up with: BART CALDERON MD [Primary Care Provider] - 3-5 Days
== END 2018-01-26 16:38 | disposition home or self-care (01) | DRG 558 ==
LOC: ED 19:48 → 4A 01-25 01:52
PROVIDERS: ADMIT Internal Medicine; ATTEND Internal Medicine
DX: M62.82 Rhabdomyolysis (principal); G43.909 Migraine, unspecified, not intractable, without status migrainosus; R56.9 Unspecified convulsions; I10 Essential (primary) hypertension; G89.29 Other chronic pain; K21.9 Gastro-esophageal reflux disease without esophagitis; F31.9 Bipolar disorder, unspecified; Z98.51 Tubal ligation status; Z90.49 Acquired absence of other specified parts of digestive tract; Z82.49 Family history of ischemic heart disease and other diseases of the circulatory system; E78.5 Hyperlipidemia, unspecified; Z90.710 Acquired absence of both cervix and uterus
CPT/HCPCS: 36415; 70450; 70551; 80048; 80053; 80061; 82550; 82553; 82962; 84484; 85025; 85610; 85670; 85730; 93005; 93010; 93306; 93880; 96361; 96374; 96375; G8978-GP; G8979-GP; G8987-GO; G8989-GO; J1650; J1885; J2270; J2405; J7030

== ENCOUNTER 2019-03-08 08:54 | Outpatient (CLI) | payer MEDICARE ==
[2019-03-08 09:34] LABS: Blood Urea Nitrogen 16 mg/dL (7-17)
== END 2019-03-08 08:55 | disposition home or self-care (01) ==
LOC: CT 08:54
PROVIDERS: ATTEND Internal Medicine Gastroenterology
DX: R10.31 Right lower quadrant pain (principal); I10 Essential (primary) hypertension; E66.9 Obesity, unspecified; K21.9 Gastro-esophageal reflux disease without esophagitis; M19.90 Unspecified osteoarthritis, unspecified site
CPT/HCPCS: 36415; 82565; 84520

== ENCOUNTER 2020-09-05 14:45 | Emergency (ER) | payer MEDICARE ==
[2020-09-05 14:58] VITALS: BP 96/71
--- NOTE | 2020-09-05 17:40 | Emergency Department Report ---
ED ENT HPI - General Chief complaint: Headache Stated complaint: JAW PAIN Time Seen by Provider: 09/05/20 17:13 Source: patient Mode of arrival: Ambulatory Limitations: No Limitations - History of Present Illness Initial comments: The patient was evaluated in the emergency department for symptoms described in the history of present illness. He/she was evaluated in the context of the global COVID-19 pandemic, which necessitated consideration that the patient might be at risk for infection with the virus that causes COVID-19. Institutional protocols and algorithms that pertain to the evaluation of patients at risk for COVID-19 are in a state of rapid change based on information released by regulatory bodies including the CDC and federal and stat e organizations. These policies and algorithms were followed during the patient's care in the emergency department. Please note that these policies, procedures and recommendations changed on a rapid basis. 49-year-old -[place] female who has a history of chronic pain presents to the emergency room for left side jaw pain for last few weeks. Patient states that she is currently taking alendronate for osteoporosis. Patient reports that the pain is worse on her left side and it makes it difficult for her to open her mouth. Patient denies any trauma to her jaw. She has a current history of fibromyalgia chronic pain. Patient reports she is under pain management. Patient's pain management medication consist of morphine 15 mg 3 times a day with the last dispensed on 08/17/2020. She currently got a prescription for Fioricet on 08/29/2020. - Related Data Home Medications Medication Instructions Recorded Confirmed Last Taken Tizanidine HCl [Zanaflex] 4 mg PO QID PRN 12/14/14 01/26/18 01/24/18 Spironolactone [Aldactone] 25 mg PO DAILY 03/22/15 01/26/18 01/24/18 Ondansetron [Zofran TAB] 4 mg PO TID PRN 04/15/15 01/26/18 01/24/18 Oxycodone HCl/Acetaminophen 1 each PO TID PRN 03/07/17 01/26/18 01/24/18 [Percocet 10/325 mg] DULoxetine [Cymbalta] 30 mg PO BID 11/09/17 01/26/18 01/24/18 Doxepin [SINEquan] 50 mg PO HS PRN 11/09/17 01/26/1801/24/18 Eszopiclone [Lunesta] 3 mg PO HS 11/09/17 01/26/18 01/24/18 Gabapentin [Neurontin] 400 mg PO QAM 11/09/17 01/26/18 01/24/18 Gabapentin [Neurontin] 800 mg PO QPM 11/09/17 01/26/18 01/24/18 Metoprolol [Lopressor TAB] 100 mg PO BID 11/09/17 01/26/18 01/24/18 Multivitamin with Folic Acid 1 tab PO DAILY 11/09/17 01/26/18 01/24/18 [Thera Tablet] Pantoprazole [Protonix TAB] 40 mg PO QDAY 11/09/17 01/26/18 01/24/18 Rizatriptan Benzoate [Maxalt] 10 mg PO PRN PRN 11/09/17 01/26/18 Unknown Atorvastatin Calcium [Lipitor] 20 mg PO DAILY 01/26/18 01/26/18 01/24/18 Buspirone HCl [busPIRone] 15 mg PO QID 01/26/18 01/26/18 01/24/18 Lubiprostone (Nf) [Amitiza (Nf)] 24 mcg PO BID 01/26/18 01/26/18 01/24/18 SUMAtriptan SUCCINATE [Imitrex] 25 mg PO HS 01/26/18 01/26/18 Unknown Topiramate [Topamax] 100 mg PO QAM 01/26/18 01/26/18 01/24/18 Topiramate [Topamax] 300 mg PO QPM 01/26/18 01/26/18 01/24/18 Allergies Allergy/AdvReac Type Severity Reaction Status Date / Time No Known Allergies Allergy Verified 12/14/14 06:02 ED Dental HPI - General Chief complaint: Headache Stated complaint: JAW PAIN Time Seen by Provider: 09/05/20 17:13 Source: patient Mode of arrival: Ambulatory Limitations: No Limitations - Related Data Home Medications Medication Instructions Recorded Confirmed Last Taken Tizanidine HCl [Zanaflex] 4 mg PO QID PRN 12/14/14 01/26/18 01/24/18 Spironolactone [Aldactone] 25 mg PO DAILY 03/22/15 01/26/1801/24/18 Ondansetron [Zofran TAB] 4 mg PO TID PRN 04/15/15 01/26/18 01/24/18 Oxycodone HCl/Acetaminophen 1 each PO TID PRN 03/07/17 01/26/18 01/24/18 [Percocet 10/325 mg] DULoxetine [Cymbalta] 30 mg PO BID 11/09/17 01/26/18 01/24/18 Doxepin [SINEquan] 50 mg PO HS PRN 11/09/17 01/26/18 01/24/18 Eszopiclone [Lunesta] 3 mg PO HS 11/09/17 01/26/18 01/24/18 Gabapentin [Neurontin] 400 mg PO QAM 11/09/17 01/26/18 01/24/18 Gabapentin [Neurontin] 800 mg PO QPM 11/09/17 01/26/18 01/24/18 Metoprolol [Lopressor TAB] 100 mg PO BID 11/09/17 01/26/18 01/24/18 Multivitamin with Folic Acid 1 tab PO DAILY 11/09/17 01/26/18 01/24/18 [Thera Tablet] Pantoprazole [Protonix TAB] 40 mg PO QDAY 11/09/17 01/26/18 01/24/18 Rizatriptan Benzoate [Maxalt] 10 mg PO PRN PRN 11/09/17 01/26/18 Unknown Atorvastatin Calcium [Lipitor] 20 mg PO DAILY 01/26/18 01/26/18 01/24/18 Buspirone HCl [busPIRone] 15 mg PO QID 01/26/18 01/26/18 01/24/18 Lubiprostone (Nf) [Amitiza (Nf)] 24 mcg PO BID 01/26/18 01/26/18 01/24/18 SUMAtriptan SUCCINATE [Imitrex] 25 mg PO HS 01/26/18 01/26/18 Unknown Topiramate [Topamax] 100 mg PO QAM 01/26/18 01/26/18 01/24/18 Topiramate [Topamax] 300 mg PO QPM 01/26/18 01/26/18 01/24/18 Allergies Allergy/AdvReac Type Severity Reaction Status Date / Time No Known Allergies Allergy Verified 12/14/14 06:02 ED Review of Systems ROS: Stated complaint: JAW PAIN Other details as noted in HPI ED Past Medical Hx - Past Medical History Previous Medical History?: Yes Hx Hypertension: Yes Hx Heart Attack/AMI: No (DENIES) Hx Congestive Heart Failure: No Hx Diabetes: No Hx GERD: Yes Hx Arthritis: Yes Hx Seizures: Yes (2014, LAST AND ONLY EPISODE, THEY TOOK ME OFF MEDICINE) Hx Psychiatric Treatment: Yes (bipolar disorder) Hx Asthma: No Hx COPD: No Hx HIV: No Additional medical history: Chronic pain - Surgical History Past Surgical History?: Yes Hx Cholecystectomy: Yes Additional Surgical History: Tubal ligation, gastric bypass, left shoulder surgery - Social History Smoking Status: Never Smoker Substance Use Type: Non Opiate Pain, Prescribed - Medications Home Medications: Home Medications Medication Instructions Recorded Confirmed Last Taken Type Tizanidine HCl [Zanaflex] 4 mg PO QID PRN 12/14/14 01/26/18 01/24/18 History Spironolactone [Aldactone] 25 mg PO DAILY 03/22/15 01/26/18 01/24/18 History Ondansetron [Zofran TAB] 4 mg PO TID PRN 04/15/15 01/26/18 01/24/18 History Oxycodone HCl/Acetaminophen 1 each PO TID PRN 03/07/17 01/26/18 01/24/18 History [Percocet 10/325 mg] DULoxetine [Cymbalta] 30 mg PO BID 11/09/17 01/26/18 01/24/18 History Doxepin [SINEquan] 50 mg PO HS PRN 11/09/17 01/26/18 01/24/18 History Eszopiclone [Lunesta] 3 mg PO HS 11/09/17 01/26/18 01/24/18 History Gabapentin [Neurontin] 400 mg PO QAM 11/09/17 01/26/18 01/24/18 History Gabapentin [Neurontin] 800 mg PO QPM 11/09/17 01/26/18 01/24/18 History Metoprolol [Lopressor TAB] 100 mg PO BID 11/09/17 01/26/18 01/24/18 History Multivitamin with Folic Acid 1 tab PO DAILY 11/09/17 01/26/18 01/24/18 History [Thera Tablet] Pantoprazole [Protonix TAB] 40 mg PO QDAY 11/09/17 01/26/18 01/24/18 History Rizatriptan Benzoate [Maxalt] 10 mg PO PRN PRN 11/09/17 01/26/18 Unknown History Atorvastatin Calcium [Lipitor] 20 mg PO DAILY 01/26/18 01/26/18 01/24/18 History Buspirone HCl [busPIRone] 15 mg PO QID 01/26/18 01/26/18 01/24/18 History Lubiprostone (Nf) [Amitiza (Nf)] 24 mcg PO BID 01/26/18 01/26/18 01/24/18 History SUMAtriptan SUCCINATE [Imitrex] 25 mg PO HS 01/26/18 01/26/18 Unknown History Topiramate [Topamax] 100 mg PO QAM 01/26/18 01/26/18 01/24/18 History Topiramate [Topamax] 300 mg PO QPM 01/26/18 01/26/18 01/24/18 History ED Physical Exam - General Limitations: No Limitations ED Course Vital Signs 09/05/20 09/05/20 14:57 18:34 Temperature 98.1 F Pulse Rate 58 L Respiratory 14 18 Rate Blood Pressure 96/71 O2 Sat by Pulse 96 Oximetry ED Medical Decision Making - Medical Decision Making 49-year-old -[place] female who has a history of chronic pain presents to the emergency room for left side jaw pain for last few weeks. Patient states that she is currently taking alendronate for osteoporosis. Patient reports that the pain is worse on her left side and it makes it difficult for her to open her mouth. Patient denies any trauma to her jaw. She has a current history of fibromyalgia chronic pain. Patient reports she is under pain management. Patient's pain management medication consist of morphine 15 mg 3 times a day with the last dispensed on 08/17/2020. She currently got a prescription for Fioricet on 08/29/2020. Ibuprofen 600 mg have been ordered for pain management. X-ray of her mandible has been ordered to rule out necrosis of the mandible secondary to alendronate use. If that is negative patient be discharged home to take ibuprofen or Tylenol and continue with her narcotics as prescribed by her pain management provider. Critical care attestation.: If time is entered above; I have spent that time in minutes in the direct care of this critically ill patient, excluding procedure time. ED Disposition Clinical Impression: Chronic jaw pain Disposition: DC- TO HOME OR SELFCARE Condition: Stable Instructions: Temporomandibular Disorder (ED) Additional Instructions: X-ray shows no acute abnormalities no fractures. Recommend to take Tylenol or ibuprofen or your chronic pain management medications. Follow-up with your primary care provider. I recommend discontinuing the alendronate until you speak to your primary care provider which should be in the next 5 to 7 days. Referrals: Your, primary care provider [Other]
[2020-09-05] MEDS ORDERED: IBUPROFEN 600 MG TAB PO ONE (18:12)
--- NOTE | 2020-09-05 18:55 | XRay Report ---
MANDIBLE 4 VIEW(S) INDICATION / CLINICAL INFORMATION: jaw pain on alendronate COMPARISON: None available. FINDINGS: BONES / JOINT(S): No acute fracture or subluxation. No significant arthritis. SOFT TISSUES: No significant abnormality. ADDITIONAL FINDINGS: None. Signer Name: Abisai Rose MD Signed: 09/05/2020 6:50 PM Workstation Name: [id number]
== END 2020-09-05 19:10 | disposition home or self-care (01) ==
LOC: ED 14:45
DX: R68.84 Jaw pain (principal); G89.29 Other chronic pain; I10 Essential (primary) hypertension; M19.90 Unspecified osteoarthritis, unspecified site; G40.909 Epilepsy, unspecified, not intractable, without status epilepticus; Z98.51 Tubal ligation status; Z90.49 Acquired absence of other specified parts of digestive tract; Z98.890 Other specified postprocedural states; Z79.899 Other long term (current) drug therapy
CPT/HCPCS: 70100; 99283

== ENCOUNTER 2021-12-30 08:51 | Day surgery (SDC) | payer MEDICARE ==
[2021-12-30] MEDS ORDERED: SODIUM CHLORIDE 0.9% 500 ML 500 ML IV SCH (10:00)
[2021-12-30 10:06] VITALS: BP 118/77
[2021-12-30] MEDS ORDERED: EPINEPHrine 1 MG/10 ML SYRINGE ONE (11:42)
[2021-12-30] MEDS ORDERED: NITROGLYCERIN 0.4 MG TAB SUBL SL ONE (11:42)
[2021-12-30] MEDS ORDERED: ATROPINE 0.1% (1 MG/10 ML) CARDIAC SYRINGE ONE (11:42)
[2021-12-30] MEDS ORDERED: SODIUM CHLORIDE 0.9% 1000 ML 1,000 ML ONE (11:57)
--- NOTE | 2022-01-03 10:33 | Tilt Table Report ---
DATE OF SERVICE: 12/30/2021 DATE OF PROCEDURE: 12/30/2021 PROCEDURE PERFORMED: Tilt table test. PREPROCEDURE DIAGNOSIS: Recurrent syncope. DOCUMENTATION OF INFORMED CONSENT: The potential risk associated with tilt table testing were explained to the patient. Alternatives to the proposed procedure were also explained to the patient. DESCRIPTION OF PROCEDURE: The patient was brought to the procedure in a postabsorptive state. She underwent passive head-up tilt table testing with constant electrocardiogram and blood pressure monitoring. The tilt protocol was a baseline tilt followed by sublingual nitroglycerin. The patient was tilted to 80 degrees in the erect position. During the procedure, the patient complained of lightheadedness and dizziness. The patient never lost consciousness. The patient's symptoms resolved and her vitals remained stable. The patient was placed in the supine position after 40 minutes. The baseline heart rate was 59 beats per minute. The baseline blood pressure was 118/80 mmHg. Upon initial erect position, the patient's heart rate was 66 beats per minute and the blood pressure was 117/81 mmHg. The patient was erect for 30 minutes without symptoms. She was given sublingual nitroglycerin. Within 3-5 minutes, the patient's blood pressure decreased to the lowest at 87/52 mmHg. At this time, she complained of some lightheadedness, but never lost consciousness. After 5-7 more minutes, her symptoms resolved and she was placed in the supine position. Initially after being placed in the supine position, the patient's heart rate decreased to sinus bradycardia with heart rates in the 40s. After several minutes, it increased back to its baseline heart rate. Initially in the supine position, the patient's blood pressure increased to 111/70 mmHg. ASSESSMENT: Inconclusive tilt table test. PLAN: 1. The patient was instructed to avoid dehydration. 2. The patient was scheduled to follow up with her primary ceramic engineer. TID: [id number] RECEIPT: [id number] NORMA/JG
== END 2021-12-30 08:52 | disposition home or self-care (01) ==
LOC: CATH 08:51 → CATHLABREC 08:51
PROVIDERS: ATTEND Internal Medicine Cardiovascular Disease
DX: R55 Syncope and collapse (principal); R00.0 Tachycardia, unspecified; E78.2 Mixed hyperlipidemia; I10 Essential (primary) hypertension; F41.8 Other specified anxiety disorders; F31.9 Bipolar disorder, unspecified; I21.4 Non-ST elevation (NSTEMI) myocardial infarction; G43.109 Migraine with aura, not intractable, without status migrainosus; G62.9 Polyneuropathy, unspecified; K21.9 Gastro-esophageal reflux disease without esophagitis; E66.9 Obesity, unspecified; M79.7 Fibromyalgia; M06.9 Rheumatoid arthritis, unspecified; Z98.890 Other specified postprocedural states; Z79.899 Other long term (current) drug therapy; Z90.49 Acquired absence of other specified parts of digestive tract; Z98.51 Tubal ligation status; Z90.710 Acquired absence of both cervix and uterus; Z87.440 Personal history of urinary (tract) infections; Z68.31 Body mass index [BMI] 31.0-31.9, adult
CPT/HCPCS: 93660; J7030; Q0162; J0171; J0461